=== PATIENT | male | born 1940 | race Caucasian/White ===

== ENCOUNTER 2018-05-29 13:55 | Emergency (ER) | payer BC, SELFPAY ==
[2018-05-29] MEDS ORDERED: Adacel (T-DAP) 0.5 ML VIAL ONE (15:22)
== END 2018-05-29 14:30 | disposition left against medical advice (07) ==
LOC: SCSER 13:55
DX: Z53.21 Procedure and treatment not carried out due to patient leaving prior to being seen by health care provider (principal)
CPT/HCPCS: 90715

== ENCOUNTER 2018-05-29 19:07 | Inpatient (IN) | payer MEDICARE ==
[2018-05-29] MEDS ORDERED: Diltiazem HCl 125 MG, Admixture Fee 1 EACH in Sodium Chloride 0.9% 100 ML IVPB SCH (19:30)
[2018-05-29] MEDS ORDERED: Enoxaparin Sodium 80 MG/0.8 ML SYRINGE ONE (19:49)
[2018-05-29 20:23] LABS: Prothrombin Time 13.3 SEC (12.0-14.7)
[2018-05-29 20:24] LABS: PTT 22.5 SEC (22.9-36.1)
[2018-05-29] MEDS ORDERED: Ondansetron HCl/PF 4 MG/2 ML Vial IVP PRN (22:11)
[2018-05-29] MEDS ORDERED: Ondansetron ODT 4 MG TAB SL PRN (22:11)
[2018-05-29] MEDS ORDERED: Acetaminophen 325 MG TAB PO PRN (22:11)
[2018-05-29 22:39] VITALS: BMI 25.4
[2018-05-30] MEDS ORDERED: Diltiazem 125 MG in Sodium Chloride 0.9% 100 ML IVPB SCH (01:30)
[2018-05-30 05:56] LABS: Anion Gap 11 mmol/L (10-20); BUN (Urea Nitrogen) 16 mg/dL (8.4-25.7); Calc. Creatinine Clearance 91 mL/min (70-130); Calcium 8.5 mg/dL (7.8-10.44); Carbon Dioxide 23 mmol/L (23-31); Chloride 107 mmol/L (98-107); Estimated GFR-MDRD Greater than 90; Glucose 92 mg/dL (83-110); Potassium 3.4 mmol/L (3.5-5.1); Sodium 138 mmol/L (136-145)
--- NOTE | 2018-05-30 06:01 | HP ---
PRIMARY CARE DOCTOR FOR THIS PATIENT: No PCP. CODE STATUS: FULL CODE. TIME OF EVALUATION: 11:50 p.m. CHIEF COMPLAINT FOR THIS PATIENT: Palpitation. HISTORY OF PRESENT ILLNESS: This is a 77-year-old male patient with past medical history of health, does not follow with any primary care doctor. The patient was working outside and he had some trauma with the wires and went to the ER. He had a checkup and after he got his wound stitches, he was fou nd to have heart rate in the 160s when he was checked. He has atrial fibrillation with rapid ventric ular response which is new for the patient. The patient's symptoms were mild. No clear triggers, no alleviating factors. The patient was placed on a Cardizem drip for heart rate control, was given Lo venox and he has been placed on . No significant associated factors. REVIEW OF SYSTEMS: Constitutional: No fever or chills or generalized weakness. Respiratory: No co ugh, sputum production. No shortness of breath. Cardiovascular: The patient has palpitations. No chest pain. Gastrointestinal: No nausea, vomiting, diarrhea or abdominal pain. 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 Genitourinary: No burning with urination. Extremities: No leg s welling. All other systems were reviewed and negative except for the findings mentioned above. PAST MEDICAL HISTORY: History of GERD, hyperlipidemia. PAST SURGICAL HISTORY: Anterior right ankle fracture. SOCIAL HISTORY: The patient drinks every day. No drugs. He smokes cigarettes. KNOWN ALLERGIES: No known drug allergies. REPORTED MEDICATIONS: Gabapentin, omeprazole, gemfibrozil, nortriptyline, Flomax, Naprosyn. VITAL SIGNS: On presentation, heart rate 157, respiratory rate was 18, temperature 97.9, pain was 0/ 10, oxygen saturation 93 on room air. EKG: The patient has atrial fibrillation with rapid ventricular response at the rate of 109. Good P VCs Chest x-ray was done and was negative. PHYSICAL EXAMINATION: GENERAL APPEARANCE: The patient is alert, oriented, no acute distress. HEENT: Eyes, normal conjunctivae. Moist oral mucosa. Anicteric. NECK: No JVD. RESPIRATORY: Bilateral air entry. No rales, no wheezes. Symmetric expansion. CARDIOVASCULAR: The patient is tachycardic. Irregular rhythm. No murmurs. No gallop. No edema. ABDOMEN: Soft. The patient is obese. Normal bowel sounds. MUSCULOSKELETAL: Baseline range of motion and strength. No tenderness. SKIN: Warm and intact. No pallor, no rash, no redness. Peripheral pulses are present. Capillary r efill seems to be intact. NEUROLOGIC: No evidence of any new focal weakness. Baseline speech. Cranial nerves seem to be inta ct. PSYCHIATRIC: The patient is in good mood. No anxiety, oriented, optimal judgment. LABORATORY DATA: INR 1.0. PT 13.3, PTT 22.5. Hematology: White count was 20, hemoglobin was 13.7, MCV was 112, platelet count 164. Chemistry: Sodium 141, potassium 4.0, chloride 108, carbon dioxid e 22, anion gap 15, BUN 15, creatinine 1.0, GFR 71, glucose 137, calcium 9.5, total bilirubin 0.5, T 16, ALT 10, alk phos 63. CK 136, troponin 0.017. Beta natriuretic peptide 277. Serum total prote in was 6.9 with albumin 4.0, globulin 2.9, albumin globulin ratio is 1.4. ASSESSMENT AND PLAN: The patient will be placed in the hospital with the following medical problems. 1. Atrial fibrillation with rapid ventricular response. The patient is still tachyarrhythmic, on Ca rdizem drip. We will adjust the dose. I will call Cardiology. The patient under anticoagulation. We will follow recommendations for further management from Cardiology. 2. Leukocytosis of 20, unclear etiology. We will monitor. No evidence of any acute infection at th is time. 3. Hyperglycemia with a glucose of 127. There is minimal related to acute physical distress o r poor oral tolerance to glucose. We will monitor. No need for acute intervention at this point. W e will adjust medicines as needed. 4. Mildly elevated beta natriuretic peptide. The patient has no history of any cardiac disease. We will monitor ago and will treat accordingly. The patient has a known history of congestive heart fa ilure. We will do echocardiogram in the morning,also, presence of congestive heart failure. Atrial fibrillation, the patient could have some kind of congestive heart failure secondary to the atrial fi brillation. 5. Deep venous thrombosis prophylaxis. The patient is on full dose anticoagulation.
[2018-05-30 06:33] LABS: Band 1 % (5-11); Lymphocytes 93 % (21-51); MDiff Complete? YES; Macrocytosis SLIGHT = 6-15 cells (100X) (0-5/hpf); Mean Corpuscular HGB CONC 33.3 g/dL (32.0-36.0); Mean Corpuscular Hemoglobin 37.6 pg (27.0-31.0); Monocytes 2 % (0-10); Neutrophil 4 % (42-75); Platelet Count 160 thou/uL (130-400); RBC Distribution Width 13.7 % (11.5-14.5); Red Blood Cell (RBC) Count 3.19 mill/uL (4.70-6.10); White Blood Cell (WBC) Count 21.9 thou/uL (4.8-10.8)
[2018-05-30] MEDS: Enoxaparin Sodium 80 MG/0.8 ML SYRINGE SC SCH ×2 (08:50→21:12)
[2018-05-30] MEDS ORDERED: Acetaminophen 325 MG TAB PO PRN (13:52)
--- NOTE | 2018-05-30 16:37 | CON ---
DATE OF SERVICE: 05/30/2018. REASON FOR CONSULTATION: Atrial fibrillation, new onset. HISTORY OF PRESENT ILLNESS: Mr. Reeves is a very pleasant 77-year-old gentleman with no previous pas t medical history, who recently was working on a fence. He states he had trauma from the wire. He p resented to the emergency room for stitches. He was found to be in atrial fibrillation with RVR. Th is is a new finding. He was asymptomatic. No chest pain, pressure, or other associated symptoms. H e was subsequently admitted. PAST MEDICAL HISTORY: Acid reflux, hyperlipidemia. SOCIAL HISTORY: Positive alcohol, positive tobacco use. ALLERGIES: None. HOME MEDICATIONS: Include omeprazole, gabapentin, gemfibrozil, nortriptyline, Flomax, and Naprosyn. REVIEW OF SYSTEMS: A 10-point review of systems was reviewed as above, otherwise negative. PHYSICAL EXAMINATION: VITAL SIGNS: Blood pressure 130/89, pulse 96, temperature 97.2. GENERAL: Patient is a pleasant male who is in no acute distress. The patient appears his stated age. NEUROLOGIC: The patient is alert and oriented times 3 with no focal neurologic deficits. HEENT: Sclerae without icterus. Mouth has moist mucous membranes with normal pallor. NECK: No JVD. Carotid upstroke brisk. No bruits bilaterally. LUNGS: Clear to auscultation with unlabored respirations. BACK: No scoliosis or kyphosis. CARDIAC: Irregularly irregular rate and rhythm with normal S1 and S2. No S3 or S4 noted. No significant rubs, murmurs, thrills, or gallops noted throughout the precordium. PMI is not displa jaylene. There is no parasternal heave. ABDOMEN: Soft, nontender, nondistended. No peritoneal signs present. No hepatosplenomegaly. No abnormal striae. EXTREMITIES: 2+ femoral and 2+ dorsalis pedis pulses. No cyanosis, clubbing, or edema. SKIN: No gross abnormalities. PERTINENT LABS: White blood cell count 21,000, hemoglobin 12, platelet count 160. Sodium 138, potas sium 3.4, creatinine 0.77. IMPRESSION: Atrial fibrillation with rapid ventricular response. RECOMMENDATIONS: Mr. Reeves's findings are felt to be new. He has no previous history of atrial fib rillation. At this point, I recommend rate control. His LVEF is mildly diminished estimated at 45 t o 50% and likely due to underlying atrial fibrillation. Continue IV Cardizem and supplement with p.o . Cardizem. Once his rate is controlled and off IV Cardizem, would be okay from my standpoint to dis charge home with close outpatient followup. We would also recommend checking a TSH.
--- NOTE | 2018-05-30 17:38 | PDOC.PN ---
- Subjective Encounter Start Date: 05/30/18 Encounter Start Time: 08:20 Pt seen for followup re: afib with RVR. Denies chest pain, shortness of breath , fevers or chills. - Objective Resuscitation Status: Resuscitation Status FULL:Full Resuscitation MAR Reviewed: Yes Vital Signs & Weight: Vital Signs (12 hours) Temp Pulse Resp BP Pulse Ox 05/30/18 15:56 98.2 F 96 16 133/89 96 05/30/18 12:00 98.0 F 58 L 17 118/73 95 05/30/18 07:57 95 05/30/18 07:32 97.8 F 86 17 105/75 95 Weight Weight 172 lb I&O: 05/29/18 05/30/18 05/31/18 06:59 06:59 06:59 Intake Total 300 Output Total 250 Balance 50 Result Diagrams: 05/30/18 05:02 05/30/18 05:02 EKG Reviewed by me: Yes (Tele: a. don) Phys Exam - Physical Examination Constitutional: NAD HEENT: moist MMs, sclera anicteric, oral pharynx no lesions, 2+ tonsils Neck: no nodes, no JVD, supple, full ROM Respiratory: no wheezing, no rales, no rhonchi, clear to auscultation bilateral Cardiovascular: RRR, no rub S1, S2 Gastrointestinal: soft, non-tender, no distention, positive bowel sounds Neurological: moves all 4 limbs Psychiatric: normal affect, A&O x 3 Dx/Plan (1) Atrial fibrillation with RVR Code(s): I48.91 - UNSPECIFIED ATRIAL FIBRILLATION Status: Acute Comment: on cardizem drip and Lovenox (2) Hypokalemia Code(s): E87.6 - HYPOKALEMIA Status: Acute Comment: replace potassium (3) Leucocytosis Code(s): D72.829 - ELEVATED WHITE BLOOD CELL COUNT, UNSPECIFIED Status: Acute Comment: no evidence of infection on CXR, check urinalysis, recheck CBC (4) GERD (gastroesophageal reflux disease) Code(s): K21.9 - GASTRO-ESOPHAGEAL REFLUX DISEASE WITHOUT ESOPHAGITIS Status: Chronic Comment: continue PPI (5) Dyslipidemia Code(s): E78.5 - HYPERLIPIDEMIA, UNSPECIFIED Status: Chronic Comment: continue gemfibrozil (6) BPH (benign prostatic hyperplasia) Code(s): N40.0 - BENIGN PROSTATIC HYPERPLASIA WITHOUT LOWER URINRY TRACT SYMP Status: Chronic Comment: stable, continue Flomax - Plan * . Review of Systems - Review of Systems Constitutional: negative: fever, chills, sweats, weakness, malaise Respiratory: negative: Cough, Shortness of Breath, SOB with Excertion, Pleuritic Pain, Wheezing Cardiovascular: negative: chest pain, palpitations, orthopnea, paroxysmal nocturnal dyspnea, edema, light headedness Gastrointestinal: negative: Nausea, Vomiting, Abdominal Pain, Diarrhea, Constipation, Melena, Hematochezia Genitourinary: negative: Dysuria, Frequency, Incontinence, Hematuria, Retention Skin: negative: Rash, Lesions, Yury, Bruising - Medications/Allergies Allergies/Adverse Reactions: Allergies Allergy/AdvReac Type Severity Reaction Status Date / Time No Known Drug Allergies Allergy Unverified 05/29/18 22:14 Medications: Current Medications Acetaminophen (Tylenol) 650 mg PO Q6H PRN PRN Reason: Headache/Fever or Pain Last Admin: 05/30/18 14:24 Dose: 650 mg Diltiazem HCl (Cardizem Sr) 60 mg PO Q6HR JESSICA Enoxaparin Sodium (Lovenox) 80 mg SC 0900,2100 JESSICA Last Admin: 05/30/18 08:50 Dose: 80 mg Diltiazem HCl 125 mg/ Sodium (Chloride) 125 mls @ 5 mls/hr IVPB INF JESSICA; Protocol Last Admin: 05/30/18 13:19 Dose: 125 mls Potassium Chloride (K-Dur) 40 meq PO ONE [facility]
[2018-05-30] MEDS ORDERED: Potassium Chloride 20 MEQ TAB PO SCH (17:45)
[2018-05-30] MEDS: Diltiazem HCl SR 60 mg Capsule PO SCH ×2 (18:18→23:21)
[2018-05-30] MEDS: Gabapentin 100 MG CAP PO SCH (21:12)
[2018-05-30] MEDS: Gemfibrozil 600 MG TAB PO SCH (21:12)
[2018-05-30] MEDS: Nortriptyline 10 MG CAP PO SCH (21:17)
[2018-05-31 05:42] LABS: Anion Gap 11 mmol/L (10-20); BUN (Urea Nitrogen) 11 mg/dL (8.4-25.7); Calc. Creatinine Clearance 93 mL/min (70-130); Calcium 8.6 mg/dL (7.8-10.44); Carbon Dioxide 24 mmol/L (23-31); Chloride 106 mmol/L (98-107); Estimated GFR-MDRD Greater than 90; Glucose 90 mg/dL (83-110); Potassium 3.9 mmol/L (3.5-5.1); Sodium 137 mmol/L (136-145)
[2018-05-31 05:56] LABS: Hemoglobin 12.5 g/dL (14.0-18.0); Lymphocytes 81 % (21-51); MDiff Complete? YES; Macrocytosis SLIGHT = 6-15 cells (100X) (0-5/hpf); Mean Corpuscular HGB CONC 33.3 g/dL (32.0-36.0); Mean Corpuscular Hemoglobin 37.6 pg (27.0-31.0); Mean Platelet Volume 7.4 fL (7.4-10.4); Neutrophil 10 % (42-75); Platelet Count 156 thou/uL (130-400); RBC Distribution Width 13.5 % (11.5-14.5); Reactive Lymphocytes 9 % (0-10); Red Blood Cell (RBC) Count 3.32 mill/uL (4.70-6.10); White Blood Cell (WBC) Count 21.1 thou/uL (4.8-10.8)
[2018-05-31] MEDS: Diltiazem HCl SR 60 mg Capsule PO SCH (06:06)
[2018-05-31 06:19] LABS: Bilirubin Negative (Negative); Blood, Urine Negative (Negative); Clarity CLEAR (Clear); Glucose, Urine (Dipstick) Negative (Negative); Leukocyte Negative (Negative); Nitrite Negative (Negative); Protein, Urine (Dipstick) Negative (Neg-Trace); Specific Gravity, Urine 1.019 (1.002-1.036); Urobilinogen 0.2 mg/dL (0.2-1.0)
[2018-05-31] MEDS: Enoxaparin Sodium 80 MG/0.8 ML SYRINGE SC SCH (08:48)
[2018-05-31] MEDS: Gabapentin 100 MG CAP PO SCH ×3 (08:48→21:52)
[2018-05-31] MEDS: Tamsulosin HCl 0.4 MG CAP PO SCH (08:48)
[2018-05-31] MEDS ORDERED: Diltiazem 125 MG in Sodium Chloride 0.9% 100 ML IVPB SCH (10:20)
[2018-05-31] MEDS ORDERED: Diltiazem HCl SR 60 mg Capsule PO SCH (10:22)
--- NOTE | 2018-05-31 10:22 | PDOC.CTH ---
Cardiology Progress Note - Subjective Doing well. nO complaints. - Objective Vital Signs Temp Pulse Resp BP Pulse Ox 05/31/18 07:53 97.1 F L 77 17 113/69 94 L 05/31/18 04:00 97.9 F 85 16 126/81 92 L Weight 174 lb 9.6 oz 05/30/18 05/31/18 06/01/18 06:59 06:59 06:59 Intake Total 300 900 Output Total 250 980 Balance 50 -80 - Physical Examination General/Neuro: alert & oriented x3, NAD Neck: carotid US brisk, no JVD present Lungs: unlabored respirations Heart: other: (irr) - Labs Result Diagrams: 05/31/18 04:31 05/31/18 04:31 - Assessment/Plan afib New onset. Recommend rate ocntrol Decrease cardizem IV. Increase PO to 90mg q6 hours. If stable, anticipate dc in am
[2018-05-31] MEDS: Diltiazem HCl SR 90 mg Capsule PO SCH ×2 (12:16→17:49)
--- NOTE | 2018-05-31 16:22 | PDOC.PN ---
- Subjective Encounter Start Date: 05/31/18 Encounter Start Time: 14:30 -: old records requested/rev Pt seen and examined, chart reviewed in its entirety, this is my first visit with this patient No F/C,no N/V/D/C, no CP or SOB, no cough. No acute events overnight, no new complaints dressing removed from left hand, suture site C/D/I Pt drinks a gallon of whiskey every 3 days All systems reviewed and neg except as above - Objective Resuscitation Status: Resuscitation Status FULL:Full Resuscitation MAR Reviewed: Yes Vital Signs & Weight: Vital Signs (12 hours) Temp Pulse Resp BP Pulse Ox 05/31/18 12:00 97.8 F 62 17 116/66 93 L 05/31/18 07:53 97.1 F L 77 17 113/69 94 L Weight Weight 174 lb 9.6 oz I&O: 05/30/18 05/31/18 06/01/18 06:59 06:59 06:59 Intake Total 300 900 Output Total 250 980 Balance 50 -80 Result Diagrams: 05/31/18 04:31 05/31/18 04:31 Radiology Reviewed by me: Yes EKG Reviewed by me: Yes Phys Exam - Physical Examination Constitutional: NAD HEENT: PERRLA, moist MMs, sclera anicteric, oral pharynx no lesions Neck: no nodes, no JVD, supple, full ROM Respiratory: no wheezing, no rales, no rhonchi, clear to auscultation bilateral Cardiovascular: no significant murmur, no rub, irregular Gastrointestinal: soft, non-tender, no distention, positive bowel sounds Musculoskeletal: no edema, pulses present Neurological: non-focal, normal sensation, moves all 4 limbs Lymphatic: no nodes Psychiatric: normal affect, A&O x 3 Skin: no rash, normal turgor, cap refill <2 seconds Dx/Plan (1) Atrial fibrillation with RVR Code(s): I48.91 - UNSPECIFIED ATRIAL FIBRILLATION Status: Acute Comment: on cardizem drip and Lovenox, increase po per cardiology, stopp gtt? (2) Hypokalemia Code(s): E87.6 - HYPOKALEMIA Status: Resolved Comment: replaced potassium (3) Leucocytosis Code(s): D72.829 - ELEVATED WHITE BLOOD CELL COUNT, UNSPECIFIED Status: Acute Qualifiers: Leukocytosis type: unspecified Qualified Code(s): D72.829 - Elevated white blood cell count, unspecified Comment: no evidence of infection on CXR, check urinalysis, recheck CBC (4) BPH (benign prostatic hyperplasia) Code(s): N40.0 - BENIGN PROSTATIC HYPERPLASIA WITHOUT LOWER URINRY TRACT SYMP Status: Chronic Qualifiers: Lower urinary tract symptom presence: symptoms absent Qualified Code(s): N40.0 - Benign prostatic hyperplasia without lower urinary tract symptoms Comment: stable, continue Flomax (5) Dyslipidemia Code(s): E78.5 - HYPERLIPIDEMIA, UNSPECIFIED Status: Chronic Comment: continue gemfibrozil (6) GERD (gastroesophageal reflux disease) Code(s): K21.9 - GASTRO-ESOPHAGEAL REFLUX DISEASE WITHOUT ESOPHAGITIS Status: Chronic Qualifiers: Esophagitis presence: without esophagitis Qualified Code(s): K21.9 - Gastro -esophageal reflux disease without esophagitis Comment: continue PPI - Plan cont current plan of care, PT/OT, out of bed/ambulate * .
[2018-05-31] MEDS: Apixaban 5 MG TAB PO SCH (21:51)
[2018-05-31] MEDS: Nortriptyline 10 MG CAP PO SCH (21:51)
[2018-05-31] MEDS: Gemfibrozil 600 MG TAB PO SCH (21:52)
[2018-06-01] MEDS: Diltiazem HCl SR 90 mg Capsule PO SCH ×3 (00:13→13:07)
[2018-06-01] MEDS: Gabapentin 100 MG CAP PO SCH (08:56)
[2018-06-01] MEDS: Apixaban 5 MG TAB PO SCH (08:56)
[2018-06-01] MEDS: Tamsulosin HCl 0.4 MG CAP PO SCH (08:57)
[2018-06-01 12:55] VITALS: BP 128/62; TEMP 97.3
--- NOTE | 2018-06-01 13:15 | PDOC.CTH ---
Cardiology Progress Note - Subjective Pt doing well. Of IV CCB. - Objective Vital Signs Temp Pulse Resp BP Pulse Ox 06/01/18 12:00 97.3 F L 84 18 128/62 93 L 06/01/18 08:00 97.7 F 73 18 140/68 92 L 06/01/18 04:00 97.5 F L 78 20 89/55 L 95 Weight 173 lb 14.4 oz 05/31/18 06/01/18 06/02/18 06:59 06:59 06:59 Intake Total 900 1204 Output Total 980 825 Balance -80 379 - Physical Examination General/Neuro: alert & oriented x3, NAD Neck: carotid US brisk, no JVD present Lungs: CTA, unlabored respirations Heart: other: (irr) Abdomen: no HSM, NT/ND, soft Extremities: + femoral B - Labs Result Diagrams: 05/31/18 04:31 05/31/18 04:31 - Assessment/Plan afib Pt stable off IV CCB Change to cardizem 360mg QAM On NOAC Ok for d/c. Fu in 1 week in office.
--- NOTE | 2018-06-01 23:57 | DIS ---
DATE OF ADMISSION: 05/30/2018 DATE OF DISCHARGE: 06/01/2018 DISCHARGE DIAGNOSES: 1. Newly diagnosed atrial fibrillation with rapid ventricular rate. 2. Hypokalemia. 3. Leukocytosis. 4. Alcohol abuse. HOSPITAL COURSE: The patient is a very pleasant 77-year-old male who initially presented to the hosp ital with complaints of palpitations. He was found to be in atrial fibrillation with RVR with heart rates of 160s. He was initially started on Cardizem drip. Based on his CHADS score, he was started also on Eliquis. He was seen by Cardiology who ordered an echocardiogram, which indicated an EF of 4 5%-50% and mild tricuspid regurgitation. The patient's heart rate was stable on discharge. Cardiokunal reyez said okay to discharge the patient to follow up with outpatient echo since his low EF is most like ly secondary to the patient being in atrial fibrillation. The patient also had leukocytosis. I did speak with the patient about that. The patient states that he has a history of elevated white count, and he is not sure if he is diagnosed with CLL or CML, but most likely it could possibly a CLL. The patient was asked to follow up with his primary and also keep an eye on his elevated white count. T here is no underlying infection noted. PHYSICAL EXAMINATION: VITAL SIGNS: Temperature of 97.7, pulse 73, respirations 18, saturation 92% on room air, blood press ure 140/68. GENERAL: He is awake, alert, oriented x3, does not appear in distress. CARDIOVASCULAR: S1, S2 present. No murmurs, rubs, or gallops. ABDOMEN: Soft, nontender. Bowel sounds are present x2. EXTREMITIES: No edema. I did speak with the patient and the patient's extensively about the side effects of Eliquis and that he needs to be very careful in terms of bleeding risks and he needs to get attention immediatel y if he starts bleeding or has a fall and injured his head or has dark stools or bright blood per rec ana. His home medications are as of the following: He will go home with apixaban 5 mg b.i.d., diltiazem 3 60 mg daily, gabapentin 200 mg t.i.d., gemfibrozil mg at bedtime, nortriptyline 10 mg at bedtim e, omeprazole 20 mg b.i.d., and tamsulosin 0.4 daily.
== END 2018-06-01 14:14 | disposition home or self-care (01) | DRG 310 ==
LOC: ERS 19:07 → 2NO 20:05
PROVIDERS: ADMIT Hospitalist; ATTEND Hospitalist
DX: I48.91 Unspecified atrial fibrillation (principal); K21.9 Gastro-esophageal reflux disease without esophagitis; E78.5 Hyperlipidemia, unspecified; R73.9 Hyperglycemia, unspecified; F10.10 Alcohol abuse, uncomplicated; D72.829 Elevated white blood cell count, unspecified; E87.6 Hypokalemia; N40.0 Benign prostatic hyperplasia without lower urinary tract symptoms; F17.210 Nicotine dependence, cigarettes, uncomplicated
CPT/HCPCS: 36415; 80048; 81003; 84443; 85025; 85610; 85730; 90715; 93005; 93306; 96365; 96366; 96372; J1650; J7050

== ENCOUNTER 2018-12-05 09:01 | Inpatient (IN) | payer MEDICARE ==
[2018-12-05] MEDS ORDERED: Cefepime 2 GM VIAL ONE (09:27)
[2018-12-05] MEDS ORDERED: Vancomycin HCl 1.5 GM in Sodium Chloride 0.9% 250 ML 300 ML IVPB SCH (09:30)
[2018-12-05 09:37] LABS: Hemoglobin 11.8 g/dL (14.0-18.0); Mean Corpuscular HGB CONC 33.6 g/dL (32.0-36.0); Mean Corpuscular Hemoglobin 36.8 pg (27.0-31.0); RBC Distribution Width 12.8 % (11.5-14.5)
--- NOTE | 2018-12-05 09:37 | RAD ---
Exam: Chest one view HISTORY:Dyspnea Comparison: 05/29/2018 FINDINGS: Lungs: Prominent opacification of the mid inferior right lung. There is patchy left parenchymal opaci ty of the perihilar region Cardiac silhouette:Enlarged Pulmonary vessels: Engorged Pleural Spaces: Small volume pleural fluid not excluded Pneumothorax: None Osseous abnormalities: None of acuity. IMPRESSION: Findings most consistent with multifocal bilateral pneumonia. Recommend follow-up upon completion of treatment regimen to confirm resolution of findings
[2018-12-05 09:42] LABS: Actual Bicarbonate (HCO3a) 20.8 mEq/L (22-28); Analyzer IN Cardio ER; Base Excess (BEa) -2.3 mEq/L (-2.0 to +3.0); CO2 Tension 31.4 mmHg (35.0-45.0); Calcium, Ionized 1.16 mmol/L (1.12-1.30); Carboxyhemoglobin (COHb) 0.3 gm% (0.0-3.0); Hemoglobin (Hb) 14.1 g/dL (14.0-18.0); O2 Tension (PaO2) 67.1 mmHg (> 70.0); pH, Arterial 7.44 (7.35-7.45)
[2018-12-05 09:44] LABS: Puncture Site RR
[2018-12-05 09:47] LABS: ALT (SGPT) Less than 7 U/L (8-55); AST (SGOT) 12 U/L (5-34); Albumin 3.4 g/dL (3.4-4.8); Alkaline Phosphatase 87 U/L (40-150); Anion Gap 16 mmol/L (10-20); BUN (Urea Nitrogen) 24 mg/dL (8.4-25.7); Bilirubin, Total 0.4 mg/dL (0.2-1.2); Calc. Creatinine Clearance 0 mL/min (70-130); Calcium 9.9 mg/dL (7.8-10.44); Carbon Dioxide 22 mmol/L (23-31); Chloride 96 mmol/L (98-107); Estimated GFR-MDRD 71; Glucose 130 mg/dL (83-110); Potassium 3.9 mmol/L (3.5-5.1); Protein, Total 7.4 g/dL (5.8-8.1); Sodium 130 mmol/L (136-145)
[2018-12-05 10:14] LABS: Platelet Count 176 thou/uL (130-400); White Blood Cell (WBC) Count 27.8 thou/uL (4.8-10.8)
[2018-12-05 10:35] LABS: Band 1 % (5-11); Lymphocytes 92 % (21-51); Neutrophil 3 % (42-75); Reactive Lymphocytes 3 % (0-10)
[2018-12-05 10:36] LABS: Microcytosis SLIGHT = 6-15 cells (100X) (0-5/hpf); Ovalocytes SLIGHT = 2-5 cells (100X) (0-1/hpf); Polychromasia SLIGHT = 2-3 cells (100X) (0-2/hpf)
[2018-12-05 10:37] LABS: MDiff Complete? YES
[2018-12-05 11:07] LABS: Bacteria/HPF None Seen HPF (None Seen); Bilirubin Negative (Negative); Blood, Urine Negative (Negative); Clarity CLOUDY (Clear); Glucose, Urine (Dipstick) Negative (Negative); Leukocyte Negative (Negative); Nitrite Negative (Negative); Protein, Urine (Dipstick) 30 mg/dL (Neg-Trace); Specific Gravity, Urine 1.026 (1.002-1.036); Squamous Epithelial 0-3 HPF (0-3); Urobilinogen 0.2 mg/dL (0.2-1.0); pH, Urine 5.5 (5.0-9.0)
[2018-12-05 11:08] LABS: Pathc Cast-AUWi Flag 6.52 (0-2.49)
[2018-12-05 11:19] LABS: Crystals/HPF 1+ AMORPH URATES HPF (Negative); Renal Epithelial 0-3 HPF (0-3); Transitional Epithelial 0-3 HPF (0-3)
[2018-12-05] MEDS ORDERED: CCU Electrolyte Replacement 1 EACH FS ONE (11:33)
[2018-12-05] MEDS ORDERED: guaiFENesin/Dextromethorphan 10 ML UDCUP PO PRN (11:35)
[2018-12-05] MEDS ORDERED: Potassium Chloride 40 MEQ in Sodium Chloride 0.9% 250 ML 250 ML IVPB PRN (11:45)
[2018-12-05] MEDS ORDERED: Potassium Phosphate 12 MMOL in Sodium Chloride 0.9% 250 ML 250 ML IV PRN (11:45)
[2018-12-05] MEDS ORDERED: Potassium Phosphate 15 MMOL in Sodium Chloride 0.9% 250 ML 250 ML IV PRN (11:45)
[2018-12-05] MEDS ORDERED: PHOS-NAK 1 PKT PACK PO PRN ×2 (11:45)
[2018-12-05] MEDS ORDERED: Magnesium 2 GM/50 ML 2 GM in Premix Bag 1 BAG IVPB PRN (11:45)
[2018-12-05] MEDS ORDERED: Potassium Phosphate 9 MMOL in Sodium Chloride 0.9% 100 ML IVPB PRN (11:45)
[2018-12-05] MEDS ORDERED: Potassium Chloride 40 MEQ in Premix Bag 1 BAG IVPB PRN (11:45)
[2018-12-05] MEDS ORDERED: Magnesium Oxide 400 MG TAB PO PRN ×2 (11:45)
[2018-12-05] MEDS ORDERED: CCU ELECTROLYTE REPLACEMENT PROTOCOL FS PRN (11:45)
[2018-12-05] MEDS ORDERED: methylPREDNISolone Sod Succ 40 MG VIAL IVP SCH (12:00)
[2018-12-05 12:29] LABS: Manual Diff?? YES
[2018-12-05] MEDS: Sodium Chloride 0.9% 1,000 ML IV SCH (12:31)
[2018-12-05] MEDS: methylPREDNISolone Sod Succ 40 MG VIAL IVP SCH ×3 (12:38→23:21)
[2018-12-05] MEDS ORDERED: Guaifenesin DM 100-10/5 ML UDCUP PO PRN (13:39)
[2018-12-05] MEDS ORDERED: Acetaminophen 325 MG TAB PO PRN (13:39)
[2018-12-05] MEDS ORDERED: Bisacodyl 5 MG TAB PO PRN (13:39)
[2018-12-05] MEDS ORDERED: Ondansetron PF 4 MG/2 ML Vial IVP PRN (13:39)
--- NOTE | 2018-12-05 14:07 | CON ---
DATE OF CONSULTATION: This encompassed 70 minutes time, of that time, greater than 50% was spent with the patient and/or at the patient's unit in the hospital. REASON FOR CONSULTATION: Pneumonia and hypoxic respiratory failure. HISTORY OF PRESENT ILLNESS: Mr. Reeves is a 78-year-old male, who developed shortness of breath and chest congestion 4 or 5 days ago. He was seen in urgent care and prescribed Omnicef and Zithromax, for which he has been taking about 2 days of treatment. Despite that, his shortness of breath has gotten worse. He has trouble breathing both in the sitting and lying position. He has a cough and congestion. He had a fever yesterday of 102. PAST MEDICAL HISTORY: 1. Chronic lymphocytic leukemia diagnosed over 10 years ago, but not treated. 2. Hyperlipidemia. 3. Gastroesophageal reflux. 4. Atrial fibrillation. PAST SURGICAL HISTORY: Right ankle fracture surgery by Dr. Shelton. SOCIAL HISTORY: He drinks 3 drinks of whiskey a day. He smokes one and half pack cigarettes per day in terms of since age 16 aside for 1 year when he quit. He is retired from [employer] the [employer]. He most recently moved back to this area from [place]. ALLERGIES: NONE. MEDICATIONS: Prior to admission; 1. Eliquis. 2. Some type of cholesterol medication. 3. Some type of antihypertensive. 4. He is also taking Zithromax and Omnicef. FAMILY MEDICAL HISTORY: He denies any family history of lung problems. REVIEW OF SYSTEMS: He has had fever and chills. No nausea. No vomiting. No hematemesis, melena, or hematochezia. No hematuria or dysuria. Remainder of 12-point review of systems is negative. PHYSICAL EXAMINATION: VITAL SIGNS: O2 saturation is running in the low 90s on 2 L, pulse in the 120s with atrial fibrillation rapid ventricular response, and blood pressure 110/70. He is awake and in no distress. HEENT: Pupils reactive. Sclerae anicteric. Oropharynx, class 2 Mallampati airway. NECK: No adenopathy, JVD, or bruits. LUNGS: Coarse breath sounds bilaterally. CARDIAC: S1 and S2. Irregularly irregular. ABDOMEN: Soft, obese, nontender, and nondistended. EXTREMITIES: No clubbing, cyanosis, or edema. IMAGING DATA: His chest x-ray shows bilateral infiltrates right greater than left. LABORATORY DATA: White count 27.8, hematocrit 35, and platelet count 176 with 92% lymphocytes and 3% neutrophils. Blood gas; pH of 7.44, pCO2 of 31, and pO2 of 67, that was on 2 L. Sodium 130, potassium 3.9, chloride 96, CO2 of 22, BUN 24, creatinine 1.0, glucose 130, lactate 2.1, AST 12, and ALT less than 7. Troponin 0.01 and BNP 1000. Albumin 3.4. ASSESSMENT: 1. The patient presenting with hypoxic respiratory failure and bilateral pulmonary infiltrates. Differential diagnosis pneumonia and/or congestive heart failure. I believe in this case, I am leaning more toward pneumonia based on the clinical presentation. 2. Chronic lymphocytic leukemia. 3. Atrial fibrillation with rapid ventricular response. PLAN: 1. Admit to CCU because of high risk for decompensation in the next 24 hours. 2. Start Levaquin and vancomycin. He has been on a penicillin type cephalosporin as an outpatient and apparently is failing that treatment. 3. Cardizem drip. 4. Very judicious use of IV fluids. 5. IV steroids and nebulization treatment. 6. Continue Eliquis. 7. Cardizem for rate control of atrial fibrillation. Job ID: [id number]
--- NOTE | 2018-12-05 14:31 | HP ---
PRIMARY CARE PROVIDER: Dr. Brian Holman in [facility] in [place], his phone #[phone]. PRINCIPAL AUTOMATION ENGINEER: Augie Price MD HISTORY OF PRESENT ILLNESS: Mr. Reeves is a pleasant 78-year-old gentleman, who was seen at [facility] on December 05, 2018. He moved to this area from [place] last year. Last May, he was seen in the emergency room here for atrial fibrillation, new onset, with rapid ventricular response. He subsequently followed up with Dr. Price in office. He reports that he was doing well until 2 days ago. At that time, he developed cough, which is dry. He also reports chronic pain across his lower back that has not changed recently. He denies any fevers. He reports shortness of breath with the cough. He denies any nausea or vomiting. He denies any abdominal pain. He went to an urgent care clinic and was started on cefdinir and azithromycin. He continued to have cough and shortness of breath and therefore, presented to the emergency room. He denies any chest pain or palpitations. REVIEW OF SYSTEMS: All other systems reviewed and found to be negative. PAST MEDICAL HISTORY: CLL diagnosed 20 years ago, the patient reports that he has been advised not to undergo any treatments unless the white count exceeds 50,000. Atrial fibrillation, COPD, hypertension, gastroesophageal reflux disease, dyslipidemia, and arthritis. PAST SURGICAL HISTORY: Right ankle surgery. SOCIAL HISTORY: The patient drinks 3 alcoholic drinks a day. He smokes one and half packs of cigarettes a day. Denies any recreational drug use. CODE STATUS: I discussed his code status. He is full code. FAMILY HISTORY: No family history of coronary artery disease. ALLERGIES: NO KNOWN DRUG ALLERGIES. CURRENT MEDICATIONS: 1. Gabapentin 200 mg 2 times a day. 2. Omeprazole 20 mg daily. 3. Gemfibrozil 600 mg daily. 4. Nortriptyline 10 mg daily. 5. Flomax 0.4 mg daily. 6. Naprosyn 375 mg as needed. 7. Eliquis 2.5 mg 2 times a day. PHYSICAL EXAMINATION: GENERAL: On examination, Mr. Reeves is awake and alert, not in acute distress. VITAL SIGNS: Blood pressure is 126/64, pulse 114, respiratory rate 20, and oxygen saturation 94% on 1 L of oxygen. He is afebrile. EYES: No scleral icterus. No conjunctival pallor. ENT: Moist mucosal membranes. No oropharyngeal erythema or exudates. NECK: Supple and nontender. Trachea is midline. RESPIRATORY: Accessory muscles of breathing are not active. Chest wall movements are symmetric bilaterally. LUNGS: Clear to auscultation without wheeze, rhonchi, or crepitations. CARDIOVASCULAR: S1 and S2 are heard, tachycardic and irregular. Peripheral pulses palpable. No carotid bruit. No pericardial rub. ABDOMEN: Soft and nontender. Bowel sounds heard. NEUROLOGIC: Cranial nerves 2 through 12 intact. Deep tendon reflexes 2+. MUSCULOSKELETAL: Power is 5/5 in all 4 extremities. He has bilateral lower extremity edema. LYMPHATIC: No cervical lymphadenopathy. SKIN: He has a small abrasion over the left cox. PSYCHIATRIC: Normal mood, normal affect, the patient is oriented to person, place, and time. LABORATORY DATA: Mr. Reeves's labs and investigations were reviewed. I reviewed his electrocardiogram, which shows atrial fibrillation with rapid ventricular response, no ST changes to suggest an acute coronary syndrome. I also reviewed his chest x-ray, which shows multifocal bilateral pneumonia. He has leukocytosis with 27,800 white cells, of which 3% are neutrophils and 92% are lymphocytes. His last known white count was 21.1 on May 31, 2018. He has macrocytic anemia with hemoglobin 11.8, normal platelet count, decreased sodium of 130, normal potassium, normal creatinine, elevated BNP of 1000, normal troponin I, normal lactic acid, and urinalysis that is negative for nitrite and leukocyte esterase. Arterial blood gases show pH of 7.44, pCO2 of 31.4, and pO2 of 67. ASSESSMENT AND PLAN: Mr. Reeves is a pleasant 78-year-old gentleman, who was seen at [facility] on December 05, 2018. His problem list includes: 1. Bilateral pneumonia: The patient is presenting with bilateral pneumonia, failed outpatient treatment. He will be admitted to the hospital and treated with intravenous antibiotics. Pulmonary and Critical Care Medicine Service also being consulted by emergency room physician. 2. Atrial fibrillation with rapid ventricular response: The patient will be treated with Cardizem drip. 3. Hypertension: We will monitor vital signs and titrate antihypertensives as needed. 4. Gastroesophageal reflux disease: Stable. 5. Chronic lymphocytic leukemia: Stable. Many thanks for allowing me to participate in your patient's care. Please feel free to contact me with any questions or concerns. LEVEL OF RISK: High. LEVEL OF COMPLEXITY: High. Job ID: [id number]
[2018-12-05] MEDS: Nicotine 21 MG PATCH TD SCH (16:41)
[2018-12-05] MEDS: Famotidine 20 MG TAB PO SCH (20:05)
[2018-12-05] MEDS: Apixaban 5 MG TAB PO SCH (20:06)
[2018-12-05] MEDS: Vancomycin HCl 1 GM in Premix Bag 1 BAG IVPB SCH (21:39)
[2018-12-05] MEDS: Diltiazem 125 MG in Sodium Chloride 0.9% 100 ML IVPB SCH (23:28)
[2018-12-06] MEDS: Sodium Chloride 0.9% 1,000 ML IV SCH (02:25)
[2018-12-06] MEDS: methylPREDNISolone Sod Succ 40 MG VIAL IVP SCH ×4 (05:42→23:29)
[2018-12-06] MEDS: Diltiazem 125 MG in Sodium Chloride 0.9% 100 ML IVPB SCH ×3 (05:46→23:53)
[2018-12-06 05:55] LABS: Hemoglobin 10.8 g/dL (14.0-18.0); Lymphocytes 98 % (21-51); MDiff Complete? YES; Mean Corpuscular HGB CONC 34.3 g/dL (32.0-36.0); Mean Platelet Volume 7.2 fL (7.4-10.4); Monocytes 1 % (0-10); Neutrophil 1 % (42-75); Platelet Count 136 thou/uL (130-400); Platelet Morphology Comment Appears Adequate; RBC Distribution Width 12.9 % (11.5-14.5); Red Blood Cell (RBC) Count 2.83 mill/uL (4.70-6.10); White Blood Cell (WBC) Count 27.5 thou/uL (4.8-10.8)
[2018-12-06 05:56] LABS: Anion Gap 15 mmol/L (10-20); BUN (Urea Nitrogen) 20 mg/dL (8.4-25.7); Calc. Creatinine Clearance 0 mL/min (70-130); Calcium 9.1 mg/dL (7.8-10.44); Carbon Dioxide 18 mmol/L (23-31); Chloride 101 mmol/L (98-107); Estimated GFR-MDRD Greater than 90; Glucose 163 mg/dL (83-110); Potassium 3.2 mmol/L (3.5-5.1); Sodium 131 mmol/L (136-145)
[2018-12-06] MEDS: Potassium Chloride 20 MEQ TAB PO PRN (06:19)
--- NOTE | 2018-12-06 07:32 | RAD ---
CHEST 1 VIEW: INDICATION: Pneumonia. COMPARISON: Prior exam dated 12/05/2018. FINDINGS: Bilateral parenchymal opacities are stable. Heart size is unchanged. Small right pleural effusion p ersists. No pneumothorax is evident. IMPRESSION: Stable exam. POS: BH
[2018-12-06] MEDS ORDERED: Furosemide 40 MG/4 ML VIAL IVP SCH (08:00)
[2018-12-06] MEDS ORDERED: Sodium Chloride 0.65% Nasal 44 ML BOT EA NARE PRN (08:14)
[2018-12-06] MEDS ORDERED: Diabetic Tussin 200 MG/10 ML UDCUP PO PRN (08:14)
[2018-12-06] MEDS ORDERED: Loratadine 10 MG TAB PO PRN (08:14)
[2018-12-06] MEDS ORDERED: Calcium Carbonate 500 MG ChewTAB PO PRN (08:14)
[2018-12-06] MEDS ORDERED: hydrALAZINE 20 MG/ML VIAL SLOW IVP PRN (08:14)
[2018-12-06] MEDS ORDERED: Cepastat Lozenges 1 LOZ PO PRN (08:14)
[2018-12-06] MEDS ORDERED: Artificial Tears 18 DROP/0.9 ML EA EYE PRN (08:14)
[2018-12-06] MEDS ORDERED: Ondansetron ODT 4 MG TAB SL PRN (08:14)
[2018-12-06] MEDS ORDERED: Acetaminophen 500 MG TAB PO PRN (08:14)
[2018-12-06] MEDS ORDERED: Loperamide HCl 2 MG CAP PO PRN (08:14)
[2018-12-06] MEDS ORDERED: Ondansetron PF 4 MG/2 ML Vial IVP PRN (08:14)
[2018-12-06] MEDS ORDERED: Eucerin (Mineral Oil/Petrolatum,White) 30 gm Jar TOP PRN (08:14)
[2018-12-06] MEDS: Apixaban 5 MG TAB PO SCH ×2 (09:09→20:13)
[2018-12-06] MEDS: Vancomycin HCl 1 GM in Premix Bag 1 BAG IVPB SCH ×2 (09:09→21:43)
[2018-12-06] MEDS: Famotidine 20 MG TAB PO SCH ×2 (09:09→20:13)
--- NOTE | 2018-12-06 09:33 | PRG ---
DATE OF SERVICE: 12/06/2018 SUBJECTIVE: The patient remains in CCU, continued to have problems with his breathing. OBJECTIVE: VITAL SIGNS: On exam, temperature 98.0, pulse 106, and blood pressure 126/83. He is on a Cardizem drip at 15 mg/hours. Total intake for 24 hours 2645 and output 1020. HEENT: Unremarkable. NECK: No JVD. LUNGS: Coarse rhonchi. CARDIAC: S1 and S2. Irregularly irregular. Tachycardic. ABDOMEN: Soft and nontender. EXTREMITIES: No edema. LABORATORY DATA: Sodium 131, potassium 3.3, chloride 101, CO2 of 18, BUN 20, creatinine 0.8, and glucose 163. White blood cell count 27.5, hematocrit 31.4, and platelet count 136 with the totality, the white count is normal and small lymphocytes. Chest x-ray shows continued bilateral infiltrates right greater than left. ASSESSMENT: 1. Bilateral pneumonia. 2. Question of concurrent heart failure. 3. Mild hyponatremia, which may be an indication of his fluid overload. 4. Hypokalemia. PLAN: 1. Replace potassium. 2. Add digoxin for better control of atrial fibrillation. 3. Continue antibiotics, steroids, and nebulization treatments. 4. Keep in CCU for the time being. Job ID: [id number]
[2018-12-06] MEDS: Saccharomyces boulardii 250 MG CAP PO SCH (09:50)
[2018-12-06] MEDS: Digoxin 0.5 MG/2 ML AMP SLOW IVP SCH ×3 (09:51→20:14)
--- NOTE | 2018-12-06 11:01 | PDOC.PN ---
- Subjective Encounter Start Date: 12/06/18 Encounter Start Time: 09:30 -: old records requested/rev Patient seen and examined. No new complaints. No overnight events has cough - Objective Resuscitation Status - Order Detail: 12/05/18 13:39 Resuscitation Status Routine Resuscitation Status: FULL: Full Resuscitation Discussed with: patient SHANTAL Reviewed: Yes Vital Signs & Weight: Vital Signs (12 hours) Temp Pulse Resp Pulse Ox 12/06/18 09:51 100 12/06/18 08:00 97 12/06/18 07:20 96 12/06/18 07:19 100 21 H 96 12/06/18 07:00 98 F 12/06/18 03:00 97.7 F 12/06/18 02:00 109 H 21 H 96 12/05/18 23:00 97.5 F L Most Recent Monitor Data Heart Rate from ECG 102 NIBP 139/72 NIBP BP-Mean 94 Respiration from ECG 25 SpO2 93 I&O: 12/05/18 12/06/18 12/07/18 06:59 06:59 06:59 Intake Total 2645 375 Output Total 1020 300 Balance 1625 75 Result Diagrams: 12/06/18 04:24 12/06/18 04:24 Radiology Reviewed by me: Yes EKG Reviewed by me: Yes Phys Exam - Physical Examination Constitutional: NAD HEENT: PERRLA, moist MMs, sclera anicteric Neck: no JVD, supple Respiratory: no wheezing, no rhonchi scattered rales+ Cardiovascular: no significant murmur, no rub, irregular Gastrointestinal: soft, non-tender, no distention, positive bowel sounds Musculoskeletal: no edema, pulses present Neurological: non-focal, normal sensation, moves all 4 limbs Lymphatic: no nodes Psychiatric: normal affect, A&O x 3 Skin: no rash, normal turgor Dx/Plan (1) Bilateral pneumonia Code(s): J18.9 - PNEUMONIA, UNSPECIFIED ORGANISM Status: Acute (2) Hypokalemia Code(s): E87.6 - HYPOKALEMIA Status: Acute (3) Hyponatremia Code(s): E87.1 - HYPO-OSMOLALITY AND HYPONATREMIA Status: Acute (4) Atrial fibrillation Code(s): I48.91 - UNSPECIFIED ATRIAL FIBRILLATION Status: Chronic (5) BPH (benign prostatic hyperplasia) Code(s): N40.0 - BENIGN PROSTATIC HYPERPLASIA WITHOUT LOWER URINRY TRACT SYMP Status: Chronic Qualifiers: Comment: stable, continue Flomax (6) CLL (chronic lymphocytic leukemia) Code(s): C91.90 - LYMPHOID LEUKEMIA, UNSPECIFIED NOT HAVING ACHIEVED REMISSION Status: Chronic (7) Chronic systolic heart failure, ACC/AHA stage C Code(s): I50.22 - CHRONIC SYSTOLIC (CONGESTIVE) HEART FAILURE Status: Chronic (8) Dyslipidemia Code(s): E78.5 - HYPERLIPIDEMIA, UNSPECIFIED Status: Chronic Comment: continue gemfibrozil (9) GERD (gastroesophageal reflux disease) Code(s): K21.9 - GASTRO-ESOPHAGEAL REFLUX DISEASE WITHOUT ESOPHAGITIS Status: Chronic Qualifiers: Comment: continue PPI (10) Macrocytic anemia Code(s): D53.9 - NUTRITIONAL ANEMIA, UNSPECIFIED Status: Chronic - Plan cont current plan of care, continue antibiotics * continue cardizem for rate control * continue IV antibiotics as ordered, levaquin and vacnomycin * pulmonary consulted * medication reviewed as below * symptomatic treatment. Review of Systems - Review of Systems Constitutional: weakness. negative: fever, chills, sweats, malaise, other Respiratory: Cough, Sputum. negative: Dry, Shortness of Breath, Hemoptysis, SOB with Excertion, Pleuritic Pain, Wheezing Cardiovascular: negative: chest pain, palpitations, orthopnea, paroxysmal nocturnal dyspnea, edema, light headedness, other Gastrointestinal: negative: Nausea, Vomiting, Abdominal Pain, Diarrhea, Constipation, Melena, Hematochezia, Other Genitourinary: negative: Dysuria, Frequency, Incontinence, Hematuria, Retention , Other Musculoskeletal: negative: Neck Pain, Shoulder Pain, Arm Pain, Back Pain, Hand Pain, Leg Pain, Foot Pain, Other Skin: negative: Rash, Lesions, Yury, Bruising, Other Neurological: negative: Weakness, Numbness, Incoordination, Change in Speech, Confusion, Seizures, Other - Medications/Allergies Allergies/Adverse Reactions: Allergies Allergy/AdvReac Type Severity Reaction Status Date / Time No Known Drug Allergies Allergy Verified 06/01/18 05:50 Medications: Current Medications Acetaminophen (Tylenol) 650 mg PO Q4H PRN PRN Reason: Headache/Fever Acetaminophen (Tylenol) 500 mg PO Q6H PRN PRN Reason: Mild Pain (1-3) Albuterol/Ipratropium (Duoneb) 3 ml EZPAP [id number] [facility] Last Admin: 12/06/18 10:59 Dose: 3 ml Apixaban (Eliquis) 5 mg PO BID [facility] Last Admin: 12/06/18 09:09 Dose: 5 mg Artificial Tears (Tears Naturale) 2 drop EA EYE PRN PRN PRN Reason: Dry Eyes Bisacodyl (Dulcolax) 10 mg PO DAILYPRN PRN PRN Reason: Constipation Calcium Carbonate (Tums) 1,000 mg PO Q4H PRN PRN Reason: Heartburn or Indigestion Digoxin (Lanoxin) 0.25 mg SLOW IVP Q6H [facility] Stop: 12/06/18 21:01 Last Admin: 12/06/18 09:51 Dose: 0.25 mg Famotidine (Pepcid) 20 mg PO BID [facility] Last Admin: 12/06/18 09:09 Dose: 20 mg Guaifenesin (Robitussin Sf) 200 mg PO Q4H PRN PRN Reason: Cough Guaifenesin/Dextromethorphan (Robitussin Dm) 10 ml PO Q6H PRN PRN Reason: Cough Hydralazine HCl (Apresoline) 10 mg SLOW IVP Q4H PRN PRN Reason: SBP > 180 and HR < 70 Ascorbic Acid 1,500 mg/ Sodium (Chloride) 53 mls @ 100 mls/hr IVPB Q6HR [facility] Stop: 12/09/18 12:01 Last Admin: 12/06/18 05:46 Dose: 53 mls Levofloxacin 750 mg/ Device 150 mls @ 100 mls/hr IVPB 1200 [facility] Last Admin: 12/05/18 12:36 Dose: 150 mls Thiamine HCl 200 mg/ Sodium (Chloride) 52 mls @ 100 mls/hr IVPB 1200,2359 [facility] Stop: 12/09/18 00:31 Last Admin: 12/05/18 23:23 Dose: 52 mls Vancomycin HCl 1 gm/ Device 200 mls @ 200 mls/hr IVPB 1000,2200 [facility] Last Admin: 12/06/18 09:09 Dose: 200 mls Diltiazem HCl 125 mg/ Sodium (Chloride) 125 mls @ 0 mls/hr IVPB INF [facility]; Protocol Last Admin: 12/06/18 05:46 Dose: 125 mls Potassium Chloride 40 meq/ (Sodium Chloride) 270 mls @ 135 mls/hr IVPB ASDIR PRN PRN Reason: FOR SERUM K+ 2.5 - 3.5 Potassium Chloride 40 meq/ (Device) 100 mls @ 50 mls/hr IVPB ASDIR PRN PRN Reason: FOR SERUM K+ 2.5 - 3.5 Magnesium Sulfate 1 gm/ Sodium (Chloride) 102 mls @ 102 mls/hr IV PRN PRN PRN Reason: MAG LEVEL 1.4 - 2.0 Magnesium Sulfate 2 gm/ Device 50 mls @ 50 mls/hr IVPB ASDIR PRN PRN Reason: MAGNESIUM < 1.4 Potassium Phosphate 9 mmol/ (Sodium Chloride) 103 mls @ 25.75 mls/hr IVPB ASDIR PRN PRN Reason: Phosphate 1.0-1.8 Potassium Phosphate 12 mmol/ (Sodium Chloride) 254 mls @ 63.5 mls/hr IV ASDIR PRN PRN Reason: Serum phosphate 0.5-0.9 Potassium Phosphate 15 mmol/ (Sodium Chloride) 255 mls @ 63.75 mls/hr IV ASDIR PRN PRN Reason: Serum Phos < 0.5 Loperamide HCl (Imodium) 2 mg PO PRN PRN PRN Reason: Diarrhea/Loose Stools Loratadine (Claritin) 10 mg PO DAILYPRN PRN PRN Reason: Sinus Symptoms Magnesium Oxide (Magnesium Oxide) 400 mg PO BIDPRN PRN PRN Reason: FOR SERUM MAG 1.4 - 2.0 Magnesium Oxide (Magnesium Oxide) 800 mg PO PRN PRN PRN Reason: FOR SERUM MAG < 1.4 Methylprednisolone Sodium Succinate (Solu-Medrol) 40 mg IVP Q6HR [facility] Last Admin: 12/06/18 05:42 Dose: 40 mg Mineral Oil/White Petrolatum (Eucerin Cream) 0 gm TOP BIDPRN PRN PRN Reason: Dry Skin Miscellaneous Medication (Phos-Nak) 1 pkt PO TIDPRN PRN PRN Reason: FOR PHOS LEVEL 1.0 - 1.8 Miscellaneous Medication (Phos-Nak) 2 pkt PO TIDPRN PRN PRN Reason: FOR PHOS LEVEL 0.5 - 1.0 Nicotine (Nicoderm Patch) 21 mg TD Q24HR [facility] Last Admin: 12/05/18 16:41 Dose: 21 mg Ccu Electrolyte (Replacement Protocol) 0 each FS PRN PRN PRN Reason: FOR ELECTROLYTE REPLACEMENT Ondansetron HCl (Zofran Odt) 4 mg SL Q6H PRN PRN Reason: Nausea/Vomiting Ondansetron HCl (Zofran) 4 mg IVP Q6H PRN PRN Reason: Nausea/Vomiting Potassium Chloride (K-Dur) 40 meq PO ASDIR PRN PRN Reason: FOR SERUM K+ 2.5 - 3.5 Last Admin: 12/06/18 06:19 Dose: 40 meq Potassium Chloride (Klor-Con) 40 meq PER TUBE ASDIR PRN PRN Reason: FOR SERUM K+ 2.5-3.5 Saccharomyces Boulardii (Florastor) 250 mg PO DAILY [facility] Last Admin: 12/06/18 09:50 Dose: 250 mg Sodium Chloride (Flush - Normal Saline) 10 ml IVF Q12HR [facility] Last Admin: 12/06/18 09:55 Dose: 10 ml Sodium Chloride (Flush - Normal Saline) 10 ml IVF PRN PRN PRN Reason: Saline Flush Sodium Chloride ([place] Nasal [place] 0.65%) 0 ml EA NARE QIDPRN PRN PRN Reason: Nasal Congestion Sterile Water (Bacteriostatic Water) 1 ml FS PRN PRN PRN Reason: RECONSTITUTION Throat Lozenges (Cepastat Lozenges) 1 conor PO Q2H PRN PRN Reason: Sore Throat
[2018-12-06] MEDS: Nicotine 21 MG PATCH TD SCH (15:42)
[2018-12-06 15:48] LABS: Potassium 3.6 mmol/L (3.5-5.1)
[2018-12-06] MEDS ORDERED: Guaifenesin DM 100-10/5 ML UDCUP PO PRN (20:00)
[2018-12-06 21:31] LABS: Vancomycin, Trough 12.4 ug/mL
[2018-12-07] MEDS: methylPREDNISolone Sod Succ 40 MG VIAL IVP SCH ×3 (05:27→17:30)
[2018-12-07 05:42] LABS: Anion Gap 17 mmol/L (10-20); BUN (Urea Nitrogen) 25 mg/dL (8.4-25.7); Calc. Creatinine Clearance 0 mL/min (70-130); Calcium 9.6 mg/dL (7.8-10.44); Carbon Dioxide 20 mmol/L (23-31); Chloride 99 mmol/L (98-107); Estimated GFR-MDRD 89; Glucose 137 mg/dL (83-110); Magnesium 1.8 mg/dL (1.6-2.6); Phosphorus 3.6 mg/dL (2.3-4.7); Potassium 3.4 mmol/L (3.5-5.1); Sodium 133 mmol/L (136-145)
[2018-12-07 05:53] LABS: Hemoglobin 14.1 g/dL (14.0-18.0); Mean Corpuscular HGB CONC 32.6 g/dL (32.0-36.0); Mean Corpuscular Hemoglobin 36.8 pg (27.0-31.0); Mean Platelet Volume 7.4 fL (7.4-10.4); Platelet Count 158 thou/uL (130-400); RBC Distribution Width 13.3 % (11.5-14.5); Red Blood Cell (RBC) Count 3.84 mill/uL (4.70-6.10); White Blood Cell (WBC) Count 27.8 thou/uL (4.8-10.8)
[2018-12-07 05:54] LABS: Lymphocytes 92 % (21-51); MDiff Complete? YES; Macrocytosis SLIGHT = 6-15 cells (100X) (0-5/hpf); Monocytes 1 % (0-10); Neutrophil 7 % (42-75); Platelet Morphology Comment Appears Adequate
--- NOTE | 2018-12-07 07:43 | RAD ---
EXAM: CHEST ONE VIEW HISTORY: Pneumonia COMPARISON: 12/06/2018 FINDINGS: The cardiac silhouette and pulmonary vasculature is within normal limits. Again noted are parenchymal opacities within the midlung zones in each lung base overall similar to the prior exam suggesting bilateral pneumonia. There is probable small right pleural effusion. The osseous structures are intac t. Vascular calcifications are again seen in the thoracic aorta. IMPRESSION: Stable parenchymal opacities each lung base worrisome for bibasilar pneumonia. Atypical pneumonia is a possibility. Follow-up to resolution is recommended.
[2018-12-07] MEDS: Saccharomyces boulardii 250 MG CAP PO SCH (08:53)
[2018-12-07] MEDS: Apixaban 5 MG TAB PO SCH ×2 (08:54→19:49)
[2018-12-07] MEDS: Vancomycin HCl 1 GM in Premix Bag 1 BAG IVPB SCH ×2 (08:54→21:23)
[2018-12-07] MEDS: Diltiazem 125 MG in Sodium Chloride 0.9% 100 ML IVPB SCH ×2 (08:55→16:02)
[2018-12-07] MEDS: Digoxin 0.125 MG TAB PO SCH (08:56)
[2018-12-07] MEDS: Famotidine 20 MG TAB PO SCH ×2 (09:00→19:49)
--- NOTE | 2018-12-07 10:12 | PRG ---
DATE OF SERVICE: 12/07/2018 SUBJECTIVE: The patient feels somewhat better today. He wants to get up in a chair. OBJECTIVE: VITAL SIGNS: Temperature 97.9, pulse 90, blood pressure 132/88, O2 saturation 94%. A 24-hour intake 1732, output 2325. HEENT: Unremarkable. NECK: No JVD. CHEST: Crackles at bases. CARDIAC: S1 and S2. Irregularly irregular. ABDOMEN: Soft, nontender. EXTREMITIES: No edema. LABORATORY DATA: Sodium 133, potassium 3.4, chloride 99, CO2 of 20, BUN 25, creatinine 0.8, glucose 137. White blood cell count 27.8, hematocrit 43.4, and platelet count 158. ASSESSMENT: 1. Bilateral pneumonia-not much change on the x-ray, but overall clinical improvement. 2. Chronic lymphocytic leukemia. 3. Atrial fibrillation with rapid ventricular response. 4. Slightly diminished ejection fraction on echo-50% to 55%. 5. Hypokalemia. PLAN: 1. Start Cardizem CD and try to wean off the Cardizem drip. 2. Continue the antibiotics, steroids, and nebulization treatments. 3. Replace potassium. 4. Check digoxin level tomorrow. 5. Move to [facility]. Job ID: [id number]
[2018-12-07] MEDS ORDERED: Spironolactone 25 MG TAB PO SCH ×2 (11:00→11:15)
--- NOTE | 2018-12-07 11:20 | CON ---
DATE OF CONSULTATION: PRIMARY GENERAL MANAGER ROAD PRODUCTION: Augie Price MD REASON FOR CONSULTATION: Atrial fibrillation with a rapid rate. HISTORY OF PRESENT ILLNESS: Mr. Javan Reeves is a 78-year-old gentleman with history of atrial fibrillation. He was admitted on this occasion with difficulty breathing and respiratory insufficiency, thought to have pneumonia. The patient developed a very rapid atrial fibrillation while here and was required to start on intravenous diltiazem. The patient still feels very short of breath. PAST MEDICAL HISTORY: 1. Chronic lymphocytic leukemia diagnosed 20 years ago. 2. Atrial fibrillation. 3. COPD. 4. Hypertension. 5. Esophageal reflux. PAST SURGICAL HISTORY: Right ankle surgery. SOCIAL HISTORY: Drinks three alcoholic drinks per day. CODE STATUS: Full code. REVIEW OF SYSTEMS: CONSTITUTIONAL: Positive for weakness and fatigue. VISION: No changes. HEARING: No changes. PULMONARY: Positive for shortness of breath. CARDIAC: No chest pain. GASTROINTESTINAL: No nausea, vomiting, or diarrhea. SKIN: No rashes. PHYSICAL EXAMINATION: GENERAL: This is a very pleasant 78-year-old man, states he is feeling better, but still having some difficulty breathing. VITAL SIGNS: Blood pressure is 139/74, pulse is 100 to 110, it is irregularly irregular. LUNGS: Expiratory wheezing and some rhonchi. CARDIAC: Irregularly irregular. No murmur, rub, or gallop heard. Heart sounds somewhat distant. ABDOMEN: Soft, nontender. EXTREMITIES: Warm, dry. No clubbing or cyanosis. No edema. ABDOMEN: Soft and nontender. PERTINENT LABORATORY DATA: Potassium is 3.4. BNP 1000.6. Most recent echocardiogram was done actually yesterday, ejection fraction 50% to 55%. EKG reveals atrial fibrillation. No acute ST or T-wave changes on the . ASSESSMENT: 1. Atrial fibrillation, chronic, now with increased rate. 2. Diastolic congestive heart failure based on increased BNP. 3. Hypokalemia. PLAN: 1. He is on intravenous diltiazem. 2. Continue to replete potassium. 3. Will likely need some diuretic therapy. We will start him on spironolactone. 4. Dr. Price to see the patient tomorrow. ADDENDUM: The patient is on Eliquis for anticoagulation and also has received intravenous digoxin. Job ID: [id number]
--- NOTE | 2018-12-07 12:12 | PQF ---
CLINICAL DOCUMENTATION IMPROVEMENT CLARIFICATION FORM: ICD-10 Updated PLEASE DO AN ADDENDUM TO THE PROGRESS NOTE WITH ANY DOCUMENTATION UPDATES OR ADDITIONS AND CARRY THROUGH TO DC SUMMARY. THANK YOU. DATE: 12/07/18 ATTN: DR. EASLEY Please exercise your independent, professional judgment in responding to the clarification form. Clinical indicators are provided on the bottom of this form for your review Please check appropriate box(es): [x ] Sepsis due to: (Pna, UTI, gangrenous gall bladder, etc.) ___pneumonia____ Due to: [ ] Device (please specify) [ ] Implant [ ] Graft [ ] Infusion [ ] SIRS due to non-infectious process (please specify etiology) [ ] with organ dysfunction [ ] without organ dysfunction [ x ] Severe sepsis with acute organ dysfunction of: __acute respi failure (Examples: respiratory failure, encephalopathy, acute kidney failure, other) [ ] Septic Shock [ ] Localized infection without sepsis [ ] Other diagnosis [ ] Unable to determine In addition, please specify: Present on Admission (POA): [x ] Yes [ ] No [ ] Unable to determine For continuity of documentation, please document condition throughout progress notes and discharge summary. Thank You. CLINICAL INDICATORS - SIGNS / SYMPTOMS / LABS ER NOTE: "SEPSIS" PULSE 121 RR 24 WBC: 27.8 RISKS: PNEUMONIA ADVANCED AGE TREATMENT: BLOOD AND URINE CULTURES IV VANCOMYCIN (ER-PRESENT) IV CEFEPIME (ER) IV LEVAQUIN (12/05-PRESENT) IV FLUIDS (ER) MONITORING IN CRITICAL CARE (This form is maintained as a part of the permanent medical record) 2014 [employer]. All Rights Reserved [email or web address] Office: [phone] [facility]
[2018-12-07] MEDS: Bacteriostatic Water 30 ML VIAL FS PRN ×2 (12:25→17:30)
--- NOTE | 2018-12-07 13:21 | PDOC.PN ---
- Subjective Encounter Start Date: 12/07/18 Encounter Start Time: 07:30 pt still has fib with RVR, on cardizem drip, no fever - Objective Resuscitation Status - Order Detail: 12/05/18 13:39 Resuscitation Status Routine Resuscitation Status: FULL: Full Resuscitation Discussed with: patient SHANTAL Reviewed: Yes Vital Signs & Weight: Vital Signs (12 hours) Temp Pulse Resp BP Pulse Ox 12/07/18 11:40 94 L 12/07/18 11:02 80 20 12/07/18 08:56 91 12/07/18 08:55 91 151/68 H 12/07/18 08:00 98.0 F 92 L 12/07/18 07:39 91 20 94 L 12/07/18 04:00 97.9 F 12/07/18 03:50 95 Weight Admit Weight 153 lb 14.122 oz Most Recent Monitor Data Heart Rate from ECG 81 NIBP 126/67 NIBP BP-Mean 86 Respiration from ECG 26 SpO2 92 I&O: 12/06/18 12/07/18 12/08/18 06:59 06:59 06:59 Intake Total 2645 1732 515 Output Total 1020 2325 Balance 1625 -593 515 Result Diagrams: 12/07/18 05:21 12/07/18 05:21 Radiology Reviewed by me: Yes EKG Reviewed by me: Yes Phys Exam - Physical Examination Constitutional: NAD HEENT: PERRLA, moist MMs, sclera anicteric Neck: no JVD, supple Respiratory: no wheezing, no rhonchi basal rales+ Cardiovascular: no significant murmur, irregular Gastrointestinal: soft, non-tender, no distention, positive bowel sounds Musculoskeletal: no edema, pulses present Neurological: non-focal, normal sensation Lymphatic: no nodes Psychiatric: normal affect, A&O x 3 Skin: no rash, normal turgor Dx/Plan (1) Bilateral pneumonia Code(s): J18.9 - PNEUMONIA, UNSPECIFIED ORGANISM Status: Acute (2) Hypokalemia Code(s): E87.6 - HYPOKALEMIA Status: Acute (3) Hyponatremia Code(s): E87.1 - HYPO-OSMOLALITY AND HYPONATREMIA Status: Acute (4) Atrial fibrillation Code(s): I48.91 - UNSPECIFIED ATRIAL FIBRILLATION Status: Chronic Qualifiers: Atrial fibrillation type: chronic Qualified Code(s): I48.2 - Chronic atrial fibrillation Comment: with RVR (5) BPH (benign prostatic hyperplasia) Code(s): N40.0 - BENIGN PROSTATIC HYPERPLASIA WITHOUT LOWER URINRY TRACT SYMP Status: Chronic Qualifiers: Comment: stable, continue Flomax (6) CLL (chronic lymphocytic leukemia) Code(s): C91.90 - LYMPHOID LEUKEMIA, UNSPECIFIED NOT HAVING ACHIEVED REMISSION Status: Chronic (7) Chronic systolic heart failure, ACC/AHA stage C Code(s): I50.22 - CHRONIC SYSTOLIC (CONGESTIVE) HEART FAILURE Status: Chronic (8) Dyslipidemia Code(s): E78.5 - HYPERLIPIDEMIA, UNSPECIFIED Status: Chronic Comment: continue gemfibrozil (9) GERD (gastroesophageal reflux disease) Code(s): K21.9 - GASTRO-ESOPHAGEAL REFLUX DISEASE WITHOUT ESOPHAGITIS Status: Chronic Qualifiers: Comment: continue PPI (10) Macrocytic anemia Code(s): D53.9 - NUTRITIONAL ANEMIA, UNSPECIFIED Status: Chronic (11) Acute respiratory failure with hypoxia Code(s): J96.01 - ACUTE RESPIRATORY FAILURE WITH HYPOXIA Status: Acute (12) Sepsis with acute organ dysfunction Code(s): A41.9 - SEPSIS, UNSPECIFIED ORGANISM; R65.20 - SEVERE SEPSIS WITHOUT SEPTIC SHOCK Status: Acute - Plan cont current plan of care, continue antibiotics * medication reviewed as below * symptomatic treatment * consult cardiology today for afib with RVR * continue cardizem drip * continue current iv antibiotics * transferred to [facility]. * replace potassium Review of Systems - Review of Systems ENT: negative: Ear Pain, Ear Discharge, Nose Pain, Nose Discharge, Nose Congestion, Mouth Pain, Mouth Swelling, Throat Pain, Throat Swelling, Other Respiratory: negative: Cough, Dry, Shortness of Breath, Hemoptysis, SOB with Excertion, Pleuritic Pain, Sputum, Wheezing Cardiovascular: negative: chest pain, palpitations, orthopnea, paroxysmal nocturnal dyspnea, edema, light headedness, other Gastrointestinal: negative: Nausea, Vomiting, Abdominal Pain, Diarrhea, Constipation, Melena, Hematochezia, Other Genitourinary: negative: Dysuria, Frequency, Incontinence, Hematuria, Retention , Other Musculoskeletal: negative: Neck Pain, Shoulder Pain, Arm Pain, Back Pain, Hand Pain, Leg Pain, Foot Pain, Other - Medications/Allergies Allergies/Adverse Reactions: Allergies Allergy/AdvReac Type Severity Reaction Status Date / Time No Known Drug Allergies Allergy Verified 06/01/18 05:50 Medications: Current Medications Acetaminophen (Tylenol) 500 mg PO Q6H PRN PRN Reason: Mild Pain (1-3) Albuterol/Ipratropium (Duoneb) 3 ml EZPAP [id number] [facility] Last Admin: 12/07/18 11:02 Dose: 3 ml Apixaban (Eliquis) 5 mg PO BID [facility] Last Admin: 12/07/18 08:54 Dose: 5 mg Artificial Tears (Tears Naturale) 2 drop EA EYE PRN PRN PRN Reason: Dry Eyes Bisacodyl (Dulcolax) 10 mg PO DAILYPRN PRN PRN Reason: Constipation Calcium Carbonate (Tums) 1,000 mg PO Q4H PRN PRN Reason: Heartburn or Indigestion Digoxin (Lanoxin) 0.125 mg PO DAILY [facility] Last Admin: 12/07/18 08:56 Dose: 0.125 mg Diltiazem HCl (Cardizem Cd) 240 mg PO DAILY [facility] Last Admin: 12/07/18 08:55 Dose: 240 mg Famotidine (Pepcid) 20 mg PO BID [facility] Last Admin: 12/07/18 09:00 Dose: 20 mg Guaifenesin (Robitussin Sf) 200 mg PO Q4H PRN PRN Reason: Cough Guaifenesin/Dextromethorphan (Robitussin Dm) 10 ml PO Q6H PRN PRN Reason: Cough Last Admin: 12/06/18 20:12 Dose: 10 ml Hydralazine HCl (Apresoline) 10 mg SLOW IVP Q4H PRN PRN Reason: SBP > 180 and HR < 70 Ascorbic Acid 1,500 mg/ Sodium (Chloride) 53 mls @ 100 mls/hr IVPB Q6HR [facility] Stop: 12/09/18 12:01 Last Admin: 12/07/18 12:25 Dose: 53 mls Levofloxacin 750 mg/ Device 150 mls @ 100 mls/hr IVPB 1200 [facility] Last Admin: 12/07/18 12:24 Dose: 150 mls Thiamine HCl 200 mg/ Sodium (Chloride) 52 mls @ 100 mls/hr IVPB 1200,2359 [facility] Stop: 12/09/18 00:31 Last Admin: 12/07/18 12:38 Dose: 52 mls Vancomycin HCl 1 gm/ Device 200 mls @ 200 mls/hr IVPB 1000,2200 [facility] Last Admin: 12/07/18 08:54 Dose: 200 mls Diltiazem HCl 125 mg/ Sodium (Chloride) 125 mls @ 0 mls/hr IVPB INF [facility]ESSICA; Protocol Last Admin: 12/07/18 08:55 Dose: 125 mls Potassium Chloride 40 meq/ (Sodium Chloride) 270 mls @ 135 mls/hr IVPB ASDIR PRN PRN Reason: FOR SERUM K+ 2.5 - 3.5 Potassium Chloride 40 meq/ (Device) 100 mls @ 50 mls/hr IVPB ASDIR PRN PRN Reason: FOR SERUM K+ 2.5 - 3.5 Magnesium Sulfate 1 gm/ Sodium (Chloride) 102 mls @ 102 mls/hr IV PRN PRN PRN Reason: MAG LEVEL 1.4 - 2.0 Magnesium Sulfate 2 gm/ Device 50 mls @ 50 mls/hr IVPB ASDIR PRN PRN Reason: MAGNESIUM < 1.4 Potassium Phosphate 9 mmol/ (Sodium Chloride) 103 mls @ 25.75 mls/hr IVPB ASDIR PRN PRN Reason: Phosphate 1.0-1.8 Potassium Phosphate 12 mmol/ (Sodium Chloride) 254 mls @ 63.5 mls/hr IV ASDIR PRN PRN Reason: Serum phosphate 0.5-0.9 Potassium Phosphate 15 mmol/ (Sodium Chloride) 255 mls @ 63.75 mls/hr IV ASDIR PRN PRN Reason: Serum Phos < 0.5 Loperamide HCl (Imodium) 2 mg PO PRN PRN PRN Reason: Diarrhea/Loose Stools Loratadine (Claritin) 10 mg PO DAILYPRN PRN PRN Reason: Sinus Symptoms Magnesium Oxide (Magnesium Oxide) 400 mg PO BIDPRN PRN PRN Reason: FOR SERUM MAG 1.4 - 2.0 Magnesium Oxide (Magnesium Oxide) 800 mg PO PRN PRN PRN Reason: FOR SERUM MAG < 1.4 Methylprednisolone Sodium Succinate (Solu-Medrol) 40 mg IVP Q6HR [facility] Last Admin: 12/07/18 12:25 Dose: 40 mg Mineral Oil/White Petrolatum (Eucerin Cream) 0 gm TOP BIDPRN PRN PRN Reason: Dry Skin Miscellaneous Medication (Phos-Nak) 1 pkt PO TIDPRN PRN PRN Reason: FOR PHOS LEVEL 1.0 - 1.8 Miscellaneous Medication (Phos-Nak) 2 pkt PO TIDPRN PRN PRN Reason: FOR PHOS LEVEL 0.5 - 1.0 Nicotine (Nicoderm Patch) 21 mg TD Q24HR [facility] Last Admin: 12/06/18 15:42 Dose: 21 mg Ccu Electrolyte (Replacement Protocol) 0 each FS PRN PRN PRN Reason: FOR ELECTROLYTE REPLACEMENT Ondansetron HCl (Zofran Odt) 4 mg SL Q6H PRN PRN Reason: Nausea/Vomiting Ondansetron HCl (Zofran) 4 mg IVP Q6H PRN PRN Reason: Nausea/Vomiting Potassium Chloride (K-Dur) 40 meq PO ASDIR PRN PRN Reason: FOR SERUM K+ 2.5 - 3.5 Last Admin: 12/06/18 06:19 Dose: 40 meq Potassium Chloride (Klor-Con) 40 meq PER TUBE ASDIR PRN PRN Reason: FOR SERUM K+ 2.5-3.5 Saccharomyces Boulardii (Florastor) 250 mg PO DAILY [facility] Last Admin: 12/07/18 08:53 Dose: 250 mg Sodium Chloride (Flush - Normal Saline) 10 ml IVF Q12HR [facility] Last Admin: 12/07/18 11:01 Dose: 10 ml Sodium Chloride (Flush - Normal Saline) 10 ml IVF PRN PRN PRN Reason: Saline Flush Sodium Chloride ([place] Nasal [place] 0.65%) 0 ml EA NARE QIDPRN PRN PRN Reason: Nasal Congestion Spironolactone (Aldactone) 25 mg PO QAM-[facility] Sterile Water (Bacteriostatic Water) 1 ml FS PRN PRN PRN Reason: RECONSTITUTION Last Admin: 12/07/18 12:25 Dose: 1 ml Throat Lozenges (Cepastat Lozenges) 1 conor PO Q2H PRN PRN Reason: Sore Throat
[2018-12-07] MEDS: Nicotine 21 MG PATCH TD SCH (13:26)
[2018-12-08] MEDS: Diltiazem 125 MG in Sodium Chloride 0.9% 100 ML IVPB SCH (01:25)
[2018-12-08] MEDS ORDERED: Lorazepam 2 MG/ML VIAL SLOW IVP SCH (01:30)
[2018-12-08] MEDS: methylPREDNISolone Sod Succ 40 MG VIAL IVP SCH ×4 (01:33→20:32)
[2018-12-08 04:55] LABS: Anion Gap 12 mmol/L (10-20); BUN (Urea Nitrogen) 34 mg/dL (8.4-25.7); Calc. Creatinine Clearance 0 mL/min (70-130); Carbon Dioxide 23 mmol/L (23-31); Chloride 101 mmol/L (98-107); Estimated GFR-MDRD Greater than 90; Glucose 147 mg/dL (83-110); Potassium 3.1 mmol/L (3.5-5.1); Sodium 133 mmol/L (136-145)
[2018-12-08 05:25] LABS: Band 1 % (5-11); Hemoglobin 9.5 g/dL (14.0-18.0); Lymphocytes 91 % (21-51); MDiff Complete? YES; Mean Corpuscular HGB CONC 33.2 g/dL (32.0-36.0); Mean Corpuscular Hemoglobin 37.1 pg (27.0-31.0); Mean Platelet Volume 7.1 fL (7.4-10.4); Neutrophil 8 % (42-75); Platelet Count 166 thou/uL (130-400); Platelet Morphology Comment Appears Adequate; RBC Distribution Width 13.4 % (11.5-14.5); Red Blood Cell (RBC) Count 2.56 mill/uL (4.70-6.10); White Blood Cell (WBC) Count 31.7 thou/uL (4.8-10.8)
[2018-12-08] MEDS ORDERED: Ziprasidone 20 MG VIAL IM SCH (07:45)
[2018-12-08] MEDS ORDERED: Diazepam 5 MG TAB PO PRN (08:04)
--- NOTE | 2018-12-08 08:10 | PRG ---
DATE OF SERVICE: 12/08/2018 SUBJECTIVE: The patient is withdrawing from alcohol. He is hallucinating, giving inappropriate answers to questions. OBJECTIVE: VITAL SIGNS: Temperature 97.6, pulse 81, blood pressure 121/62, O2 saturation 94%, 24-hour intake 2238, output 495. HEENT: Unremarkable. NECK: No adenopathy or JVD. LUNGS: Inspiratory crackles bilaterally. CARDIAC: S1, S2. Irregularly irregular, but rate controlled. ABDOMEN: Soft. EXTREMITIES: No edema. LABORATORY DATA: Sodium 133, potassium 3.1, chloride 101, CO2 of 23, BUN 34, creatinine 0.8, glucose 147. White blood cell count 31.7, hematocrit 28.7, and platelet count 166. ASSESSMENT: 1. Alcohol withdrawal. 2. Bilateral pneumonia. 3. Chronic lymphocytic leukemia. 4. Atrial fibrillation, now with a controlled ventricular response. PLAN: 1. Initiate JERI protocol for alcohol withdrawal. 2. Continue rate control of atrial fibrillation and anticoagulation for atrial fibrillation. 3. Continue antibiotics for pneumonia. I will go ahead and discontinue the vancomycin since there has been no growth of MRSA from the cultures. 4. If current medications do not control alcohol withdrawal symptoms, then consider moving back to CCU for initiation of Precedex. Job ID: [id number]
[2018-12-08] MEDS ORDERED: Thiamine HCl 200 MG/2 ML VIAL IM SCH (08:15)
[2018-12-08] MEDS ORDERED: Diazepam 5 MG TAB PO SCH (08:15)
[2018-12-08] MEDS: Saccharomyces boulardii 250 MG CAP PO SCH (08:55)
[2018-12-08] MEDS: Multivitamin W/ Minerals 1 TAB PO SCH (08:55)
[2018-12-08] MEDS: Gabapentin 100 MG CAP PO SCH ×3 (08:55→20:32)
[2018-12-08] MEDS: Folic Acid 1 MG TAB PO SCH (08:56)
[2018-12-08] MEDS: Apixaban 5 MG TAB PO SCH ×2 (08:57→20:31)
[2018-12-08] MEDS: Tamsulosin HCl 0.4 MG CAP PO SCH (08:57)
[2018-12-08] MEDS: Potassium Chloride 20 MEQ TAB PO PRN (08:57)
[2018-12-08] MEDS: Digoxin 0.125 MG TAB PO SCH (08:57)
[2018-12-08] MEDS: Spironolactone 25 MG TAB PO SCH (08:58)
[2018-12-08] MEDS: Famotidine 20 MG TAB PO SCH ×2 (08:58→20:31)
--- NOTE | 2018-12-08 09:29 | PDOC.CTH ---
Cardiology Progress Note - Subjective pt with confusion this am. Relative states last night he was getting up and going to [employer]. He has been reitred for 2 yrs. He has used EtOH in the past - Objective Vital Signs Temp Pulse Resp BP Pulse Ox 12/08/18 08:57 80 12/08/18 08:56 75 136/81 12/08/18 08:00 136/81 12/08/18 07:05 97.6 F 12/08/18 06:54 80 24 H 12/08/18 03:41 97.6 F 12/07/18 23:45 97.9 F 12/07/18 22:29 71 27 H 92 L Admit Weight 153 lb 14.122 oz 12/07/18 12/08/18 12/09/18 06:59 06:59 06:59 Intake Total 1732 2238 Output Total 2325 495 Balance -593 1743 - Physical Examination General/Neuro: NAD Neck: no JVD present Lungs: CTA, unlabored respirations Heart: PMI normal, other: (IRR) Abdomen: NT/ND, soft Extremities: + femoral B - Telemetry Telemetry Rhythm: afib - Labs Result Diagrams: 12/08/18 03:56 12/08/18 03:56 Troponin/CKMB Troponin I Less than 0.010 ng/mL (< 0.028) 12/05/18 09:20 - Assessment/Plan afib Confusion ETOH abuse Pneumonia Continue IV CCB and PO for now Consider increasing po CCB tomorrow On Abx Confusion may be multifactorial (ETOH, no sleep for thtree days, pneumonia, etc) On ACT
[2018-12-08] MEDS: Nicotine 21 MG PATCH TD SCH (13:09)
--- NOTE | 2018-12-08 14:40 | PDOC.PN ---
- Subjective Encounter Start Date: 12/08/18 Encounter Start Time: 10:30 -: old records requested/rev pt has acute delirium, his afib is controlled, bedside - Objective Resuscitation Status - Order Detail: 12/05/18 13:39 Resuscitation Status Routine Resuscitation Status: FULL: Full Resuscitation Discussed with: patient SHANTAL Reviewed: Yes Vital Signs & Weight: Vital Signs (12 hours) Temp Pulse Resp BP Pulse Ox 12/08/18 10:30 97.8 F 12/08/18 10:16 72 21 H 12/08/18 08:57 80 12/08/18 08:56 75 136/81 12/08/18 08:00 136/81 93 L 12/08/18 07:05 97.6 F 12/08/18 06:54 80 24 H 12/08/18 03:41 97.6 F Weight Admit Weight 153 lb 14.122 oz Most Recent Monitor Data Heart Rate from ECG 69 NIBP 114/60 NIBP BP-Mean 78 Respiration from ECG 25 SpO2 88 I&O: 12/07/18 12/08/18 12/09/18 06:59 06:59 06:59 Intake Total 1732 2238 Output Total 2325 495 Balance -593 1743 Result Diagrams: 12/08/18 03:56 12/08/18 03:56 EKG Reviewed by me: Yes (afib) Phys Exam - Physical Examination Constitutional: NAD HEENT: PERRLA, moist MMs, sclera anicteric Neck: no JVD, supple Respiratory: no wheezing, no rales, no rhonchi Cardiovascular: no significant murmur, irregular Gastrointestinal: soft, non-tender, no distention, positive bowel sounds Musculoskeletal: no edema, pulses present Neurological: non-focal, moves all 4 limbs Lymphatic: no nodes Psychiatric: normal affect Skin: no rash, normal turgor Dx/Plan (1) Bilateral pneumonia Code(s): J18.9 - PNEUMONIA, UNSPECIFIED ORGANISM Status: Acute (2) Hypokalemia Code(s): E87.6 - HYPOKALEMIA Status: Acute (3) Hyponatremia Code(s): E87.1 - HYPO-OSMOLALITY AND HYPONATREMIA Status: Acute (4) Atrial fibrillation Code(s): I48.91 - UNSPECIFIED ATRIAL FIBRILLATION Status: Chronic Qualifiers: Atrial fibrillation type: chronic Qualified Code(s): I48.2 - Chronic atrial fibrillation Comment: with RVR (5) BPH (benign prostatic hyperplasia) Code(s): N40.0 - BENIGN PROSTATIC HYPERPLASIA WITHOUT LOWER URINRY TRACT SYMP Status: Chronic Qualifiers: Comment: stable, continue Flomax (6) CLL (chronic lymphocytic leukemia) Code(s): C91.90 - LYMPHOID LEUKEMIA, UNSPECIFIED NOT HAVING ACHIEVED REMISSION Status: Chronic (7) Chronic systolic heart failure, ACC/AHA stage C Code(s): I50.22 - CHRONIC SYSTOLIC (CONGESTIVE) HEART FAILURE Status: Chronic (8) Dyslipidemia Code(s): E78.5 - HYPERLIPIDEMIA, UNSPECIFIED Status: Chronic Comment: continue gemfibrozil (9) GERD (gastroesophageal reflux disease) Code(s): K21.9 - GASTRO-ESOPHAGEAL REFLUX DISEASE WITHOUT ESOPHAGITIS Status: Chronic Qualifiers: Comment: continue PPI (10) Macrocytic anemia Code(s): D53.9 - NUTRITIONAL ANEMIA, UNSPECIFIED Status: Chronic (11) Alcohol withdrawal delirium Code(s): F10.231 - ALCOHOL DEPENDENCE WITH WITHDRAWAL DELIRIUM Status: Acute (12) Acute respiratory failure with hypoxia Code(s): J96.01 - ACUTE RESPIRATORY FAILURE WITH HYPOXIA Status: Acute (13) Sepsis with acute organ dysfunction Code(s): A41.9 - SEPSIS, UNSPECIFIED ORGANISM; R65.20 - SEVERE SEPSIS WITHOUT SEPTIC SHOCK Status: Acute - Plan cont current plan of care, plan discussed w/ family, continue antibiotics, PT/OT , respiratory therapy * replace potassium * start ASC protocol treatment for alcohol withdrawl delirium * continue current antibiotics * solumedrol dose reduced * discussed with * supportive care * medication reviewed as below * symptomatic treatment. Review of Systems - Review of Systems Other: not reliable today due to delirium - Medications/Allergies Allergies/Adverse Reactions: Allergies Allergy/AdvReac Type Severity Reaction Status Date / Time No Known Drug Allergies Allergy Verified 06/01/18 05:50 Medications: Current Medications Acetaminophen (Tylenol) 500 mg PO Q6H PRN PRN Reason: Mild Pain (1-3) Albuterol/Ipratropium (Duoneb) 3 ml EZPAP [id number] Last Admin: 12/08/18 14:38 Dose: 3 ml Apixaban (Eliquis) 5 mg PO BID [facility] Last Admin: 12/08/18 08:57 Dose: 5 mg Artificial Tears (Tears Naturale) 2 drop EA EYE PRN PRN PRN Reason: Dry Eyes Bisacodyl (Dulcolax) 10 mg PO DAILYPRN PRN PRN Reason: Constipation Calcium Carbonate (Tums) 1,000 mg PO Q4H PRN PRN Reason: Heartburn or Indigestion Diazepam (Valium) 10 mg PO Q4H PRN PRN Reason: FOR ASE 10 OR GREATER Stop: 12/09/18 04:00 Diazepam (Valium) 5 mg PO Q4H PRN PRN Reason: FOR ASE 10 OR GREATER Digoxin (Lanoxin) 0.125 mg PO DAILY [facility] Last Admin: 12/08/18 08:57 Dose: 0.125 mg Diltiazem HCl (Cardizem Cd) 240 mg PO DAILY [facility] Last Admin: 12/08/18 08:56 Dose: 240 mg Famotidine (Pepcid) 20 mg PO BID [facility] Last Admin: 12/08/18 08:58 Dose: 20 mg Folic Acid (Folvite) 1 mg PO DAILY [facility] Last Admin: 12/08/18 08:56 Dose: 1 mg Gabapentin (Neurontin) 200 mg PO TID [facility] Last Admin: 12/08/18 08:55 Dose: 200 mg Guaifenesin (Robitussin Sf) 200 mg PO Q4H PRN PRN Reason: Cough Guaifenesin/Dextromethorphan (Robitussin Dm) 10 ml PO Q6H PRN PRN Reason: Cough Last Admin: 12/06/18 20:12 Dose: 10 ml Hydralazine HCl (Apresoline) 10 mg SLOW IVP Q4H PRN PRN Reason: SBP > 180 and HR < 70 Ascorbic Acid 1,500 mg/ Sodium (Chloride) 53 mls @ 100 mls/hr IVPB Q6HR [facility] Stop: 12/09/18 12:01 Last Admin: 12/08/18 11:58 Dose: 53 mls Levofloxacin 750 mg/ Device 150 mls @ 100 mls/hr IVPB 1200 [facility] Last Admin: 12/08/18 11:58 Dose: 150 mls Thiamine HCl 200 mg/ Sodium (Chloride) 52 mls @ 100 mls/hr IVPB 1200,2359 [facility] Stop: 12/09/18 00:31 Last Admin: 12/08/18 11:57 Dose: 52 mls Diltiazem HCl 125 mg/ Sodium (Chloride) 125 mls @ 0 mls/hr IVPB INF [facility]; Protocol Last Admin: 12/08/18 01:25 Dose: 125 mls Potassium Chloride 40 meq/ (Sodium Chloride) 270 mls @ 135 mls/hr IVPB ASDIR PRN PRN Reason: FOR SERUM K+ 2.5 - 3.5 Potassium Chloride 40 meq/ (Device) 100 mls @ 50 mls/hr IVPB ASDIR PRN PRN Reason: FOR SERUM K+ 2.5 - 3.5 Magnesium Sulfate 1 gm/ Sodium (Chloride) 102 mls @ 102 mls/hr IV PRN PRN PRN Reason: MAG LEVEL 1.4 - 2.0 Last Admin: 12/08/18 09:09 Dose: 102 mls Magnesium Sulfate 2 gm/ Device 50 mls @ 50 mls/hr IVPB ASDIR PRN PRN Reason: MAGNESIUM < 1.4 Potassium Phosphate 9 mmol/ (Sodium Chloride) 103 mls @ 25.75 mls/hr IVPB ASDIR PRN PRN Reason: Phosphate 1.0-1.8 Potassium Phosphate 12 mmol/ (Sodium Chloride) 254 mls @ 63.5 mls/hr IV ASDIR PRN PRN Reason: Serum phosphate 0.5-0.9 Potassium Phosphate 15 mmol/ (Sodium Chloride) 255 mls @ 63.75 mls/hr IV ASDIR PRN PRN Reason: Serum Phos < 0.5 Iron/Minerals/Multivitamins (Theragran M) 1 tab PO DAILY [facility] Last Admin: 12/08/18 08:55 Dose: 1 tab Loperamide HCl (Imodium) 2 mg PO PRN PRN PRN Reason: Diarrhea/Loose Stools Loratadine (Claritin) 10 mg PO DAILYPRN PRN PRN Reason: Sinus Symptoms Magnesium Oxide (Magnesium Oxide) 400 mg PO BIDPRN PRN PRN Reason: FOR SERUM MAG 1.4 - 2.0 Magnesium Oxide (Magnesium Oxide) 800 mg PO PRN PRN PRN Reason: FOR SERUM MAG < 1.4 Magnesium Oxide (Magnesium Oxide) 400 mg PO DAILY [facility] Methylprednisolone Sodium Succinate (Solu-Medrol) 20 mg IVP Q12HR [facility] Last Admin: 12/08/18 08:59 Dose: 20 mg Mineral Oil/White Petrolatum (Eucerin Cream) 0 gm TOP BIDPRN PRN PRN Reason: Dry Skin Miscellaneous (Ase Protocol) 1 each FS ASDIR [facility] Miscellaneous Medication (Phos-Nak) 1 pkt PO TIDPRN PRN PRN Reason: FOR PHOS LEVEL 1.0 - 1.8 Miscellaneous Medication (Phos-Nak) 2 pkt PO TIDPRN PRN PRN Reason: FOR PHOS LEVEL 0.5 - 1.0 Nicotine (Nicoderm Patch) 21 mg TD Q24HR [facility] Last Admin: 12/08/18 13:09 Dose: 21 mg Ccu Electrolyte (Replacement Protocol) 0 each FS PRN PRN PRN Reason: FOR ELECTROLYTE REPLACEMENT Ondansetron HCl (Zofran Odt) 4 mg SL Q6H PRN PRN Reason: Nausea/Vomiting Ondansetron HCl (Zofran) 4 mg IVP Q6H PRN PRN Reason: Nausea/Vomiting Potassium Chloride (K-Dur) 40 meq PO ASDIR PRN PRN Reason: FOR SERUM K+ 2.5 - 3.5 Last Admin: 12/08/18 08:57 Dose: 40 meq Potassium Chloride (Klor-Con) 40 meq PER TUBE ASDIR PRN PRN Reason: FOR SERUM K+ 2.5-3.5 Saccharomyces Boulardii (Florastor) 250 mg PO DAILY [facility] Last Admin: 12/08/18 08:55 Dose: 250 mg Sodium Chloride (Flush - Normal Saline) 10 ml IVF Q12HR [facility] Last Admin: 12/08/18 09:00 Dose: 10 ml Sodium Chloride (Flush - Normal Saline) 10 ml IVF PRN PRN PRN Reason: Saline Flush Sodium Chloride ([place] Nasal [place] 0.65%) 0 ml EA NARE QIDPRN PRN PRN Reason: Nasal Congestion Spironolactone (Aldactone) 25 mg PO QAM-WM [facility] Last Admin: 12/08/18 08:58 Dose: 25 mg Sterile Water (Bacteriostatic Water) 1 ml FS PRN PRN PRN Reason: RECONSTITUTION Last Admin: 12/07/18 17:30 Dose: 1 ml Tamsulosin HCl (Flomax) 0.4 mg PO DAILY [facility] Last Admin: 12/08/18 08:57 Dose: 0.4 mg Thiamine HCl (Thiamine) 100 mg PO DAILY [facility] Throat Lozenges (Cepastat Lozenges) 1 conor PO Q2H PRN PRN Reason: Sore Throat
[2018-12-09] MEDS: Diltiazem 125 MG in Sodium Chloride 0.9% 100 ML IVPB SCH ×2 (00:18→00:19)
[2018-12-09] MEDS ORDERED: Diazepam 5 MG TAB PO PRN (04:00)
[2018-12-09 06:31] LABS: Hemoglobin 10.1 g/dL (14.0-18.0); Mean Corpuscular HGB CONC 32.6 g/dL (32.0-36.0); Mean Corpuscular Hemoglobin 36.8 pg (27.0-31.0); Mean Platelet Volume 7.3 fL (7.4-10.4); Platelet Count 211 thou/uL (130-400); RBC Distribution Width 13.6 % (11.5-14.5); Red Blood Cell (RBC) Count 2.75 mill/uL (4.70-6.10); White Blood Cell (WBC) Count 43.1 thou/uL (4.8-10.8)
[2018-12-09 06:55] LABS: Anion Gap 10 mmol/L (10-20); BUN (Urea Nitrogen) 41 mg/dL (8.4-25.7); Calc. Creatinine Clearance 0 mL/min (70-130); Calcium 9.3 mg/dL (7.8-10.44); Carbon Dioxide 27 mmol/L (23-31); Chloride 104 mmol/L (98-107); Estimated GFR-MDRD 86; Glucose 148 mg/dL (83-110); Potassium 3.8 mmol/L (3.5-5.1); Sodium 137 mmol/L (136-145)
[2018-12-09 07:04] LABS: Band 1 % (5-11); Lymphocytes 93 % (21-51); MDiff Complete? YES; Macrocytosis MODERATE=16-30 cells (100X) (0-5/hpf); Neutrophil 6 % (42-75); Platelet Morphology Comment Appears Adequate; Polychromasia SLIGHT = 2-3 cells (100X) (0-2/hpf)
--- NOTE | 2018-12-09 07:18 | PDOC.CTH ---
Cardiology Progress Note - Subjective Doing well. Much more lucid today. - Objective Vital Signs Temp Pulse Resp Pulse Ox 12/09/18 07:07 97.4 F L 12/09/18 04:00 97.8 F 12/09/18 02:06 79 18 95 12/09/18 00:00 97.5 F L 12/08/18 20:00 95 12/08/18 19:31 97.4 F L 12/08/18 19:24 88 19 94 L Admit Weight 153 lb 14.122 oz 12/08/18 12/09/18 12/10/18 06:59 06:59 06:59 Intake Total 2238 1222.5 277.4 Output Total 495 1290 Balance 1743 -67.5 277.4 - Physical Examination General/Neuro: NAD Neck: carotid US brisk, no JVD present Lungs: unlabored respirations Heart: other: (irr) Abdomen: NT/ND, soft Extremities: + femoral B - Labs Result Diagrams: 12/09/18 05:50 12/09/18 05:50 Troponin/CKMB Troponin I Less than 0.010 ng/mL (< 0.028) 12/05/18 09:20 - Assessment/Plan afib Confusion ETOH withdrawal Pneumonia CLL Recs: 12/08 Continue IV CCB and PO for now Consider increasing po CCB tomorrow On Abx Confusion may be multifactorial (ETOH, no sleep for thtree days, pneumonia, etc) On ACT REC: 12/09 DC IV CCB at 11AM Increase PO CCB to 360mg QAM Abx
--- NOTE | 2018-12-09 08:40 | PRG ---
DATE OF SERVICE: 12/09/2018 SUBJECTIVE: Mr. Reeves is much better compared to yesterday. His alcohol withdrawal symptoms have abated. OBJECTIVE: VITAL SIGNS: Temperature 97.4, pulse 92, blood pressure 121/70, O2 saturation 93%. 24 hour intake 1225 and output 1290. HEENT: Unremarkable. NECK: No JVD. LUNGS: Coarse rhonchi, but improved. CARDIAC: S1-S2 regular. ABDOMEN: Soft, nontender. EXTREMITIES: No edema. LABORATORY DATA: Sodium 137, potassium 3.8, chloride 104, CO2 of 27, BUN 41, creatinine 0.8, glucose 148. White blood cell count 43.1, hematocrit 31, platelet count 211 with 93% neutrophils. Digoxin level 0.7. ASSESSMENT: 1. Acute respiratory failure secondary to pneumonia. 2. Atrial fibrillation with rapid ventricular response - now controlled with diltiazem. 3. Alcohol withdrawal. 4. Chronic lymphocytic leukemia. PLAN: 1. The patient will continue on alcohol withdrawal precautions and the JERI protocol. 2. Continue antibiotics, nebulization treatments, and oxygen. 3. He continues on digoxin and diltiazem for rate control. Hopefully, his Cardizem drip can be turned off. 4. Updated at bedside. Job ID: [id number]
[2018-12-09] MEDS: Gabapentin 100 MG CAP PO SCH ×3 (09:10→21:22)
[2018-12-09] MEDS: Folic Acid 1 MG TAB PO SCH (09:11)
[2018-12-09] MEDS: Spironolactone 25 MG TAB PO SCH (09:11)
[2018-12-09] MEDS: Multivitamin W/ Minerals 1 TAB PO SCH (09:11)
[2018-12-09] MEDS: Magnesium Oxide 400 MG TAB PO SCH (09:11)
[2018-12-09] MEDS: Digoxin 0.125 MG TAB PO SCH (09:11)
[2018-12-09] MEDS: Famotidine 20 MG TAB PO SCH ×2 (09:11→21:22)
[2018-12-09] MEDS: Saccharomyces boulardii 250 MG CAP PO SCH (09:11)
[2018-12-09] MEDS: Thiamine 100 MG TAB PO SCH (09:11)
[2018-12-09] MEDS: Apixaban 5 MG TAB PO SCH ×2 (09:11→21:22)
[2018-12-09] MEDS: methylPREDNISolone Sod Succ 40 MG VIAL IVP SCH ×2 (09:12→21:22)
[2018-12-09] MEDS: Tamsulosin HCl 0.4 MG CAP PO SCH (09:12)
--- NOTE | 2018-12-09 10:30 | PDOC.PN ---
- Subjective Encounter Start Date: 12/09/18 Encounter Start Time: 09:45 Patient seen and examined. No new complaints. No overnight events - Objective Resuscitation Status - Order Detail: 12/05/18 13:39 Resuscitation Status Routine Resuscitation Status: FULL: Full Resuscitation Discussed with: patient SHANTAL Reviewed: Yes Vital Signs & Weight: Vital Signs (12 hours) Temp Pulse Resp Pulse Ox 12/09/18 09:11 96 12/09/18 08:27 96 12/09/18 08:26 93 24 H 96 12/09/18 08:00 94 L 12/09/18 07:07 97.4 F L 12/09/18 04:00 97.8 F 12/09/18 02:06 79 18 95 12/09/18 00:00 97.5 F L Weight Admit Weight 153 lb 14.122 oz Most Recent Monitor Data Heart Rate from ECG 92 NIBP 121/78 NIBP BP-Mean 92 Respiration from ECG 37 SpO2 93 I&O: 12/08/18 12/09/18 12/10/18 06:59 06:59 06:59 Intake Total 2238 1222.5 277.4 Output Total 495 1290 Balance 1743 -67.5 277.4 Result Diagrams: 12/09/18 05:50 12/09/18 05:50 EKG Reviewed by me: Yes Phys Exam - Physical Examination Constitutional: NAD HEENT: PERRLA, moist MMs, sclera anicteric Neck: no JVD, supple Respiratory: no wheezing, no rales, no rhonchi Cardiovascular: no significant murmur, no rub, irregular Gastrointestinal: soft, non-tender, no distention, positive bowel sounds Musculoskeletal: no edema, pulses present Neurological: non-focal, normal sensation Lymphatic: no nodes Psychiatric: normal affect Skin: no rash, normal turgor Dx/Plan (1) Bilateral pneumonia Code(s): J18.9 - PNEUMONIA, UNSPECIFIED ORGANISM Status: Acute (2) Hypokalemia Code(s): E87.6 - HYPOKALEMIA Status: Acute (3) Hyponatremia Code(s): E87.1 - HYPO-OSMOLALITY AND HYPONATREMIA Status: Acute (4) Atrial fibrillation Code(s): I48.91 - UNSPECIFIED ATRIAL FIBRILLATION Status: Chronic Qualifiers: Atrial fibrillation type: chronic Qualified Code(s): I48.2 - Chronic atrial fibrillation Comment: with RVR (5) BPH (benign prostatic hyperplasia) Code(s): N40.0 - BENIGN PROSTATIC HYPERPLASIA WITHOUT LOWER URINRY TRACT SYMP Status: Chronic Qualifiers: Comment: stable, continue Flomax (6) CLL (chronic lymphocytic leukemia) Code(s): C91.90 - LYMPHOID LEUKEMIA, UNSPECIFIED NOT HAVING ACHIEVED REMISSION Status: Chronic (7) Chronic systolic heart failure, ACC/AHA stage C Code(s): I50.22 - CHRONIC SYSTOLIC (CONGESTIVE) HEART FAILURE Status: Chronic (8) Dyslipidemia Code(s): E78.5 - HYPERLIPIDEMIA, UNSPECIFIED Status: Chronic Comment: continue gemfibrozil (9) GERD (gastroesophageal reflux disease) Code(s): K21.9 - GASTRO-ESOPHAGEAL REFLUX DISEASE WITHOUT ESOPHAGITIS Status: Chronic Qualifiers: Comment: continue PPI (10) Macrocytic anemia Code(s): D53.9 - NUTRITIONAL ANEMIA, UNSPECIFIED Status: Chronic (11) Alcohol withdrawal delirium Code(s): F10.231 - ALCOHOL DEPENDENCE WITH WITHDRAWAL DELIRIUM Status: Acute (12) Acute respiratory failure with hypoxia Code(s): J96.01 - ACUTE RESPIRATORY FAILURE WITH HYPOXIA Status: Acute (13) Sepsis with acute organ dysfunction Code(s): A41.9 - SEPSIS, UNSPECIFIED ORGANISM; R65.20 - SEVERE SEPSIS WITHOUT SEPTIC SHOCK Status: Acute - Plan cont current plan of care, plan discussed w/ family, 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 Review of Systems - Review of Systems ENT: negative: Ear Pain, Ear Discharge, Nose Pain, Nose Discharge, Nose Congestion, Mouth Pain, Mouth Swelling, Throat Pain, Throat Swelling, Other Respiratory: negative: Cough, Dry, Shortness of Breath, Hemoptysis, SOB with Excertion, Pleuritic Pain, Sputum, Wheezing Cardiovascular: negative: chest pain, palpitations, orthopnea, paroxysmal nocturnal dyspnea, edema, light headedness, other Gastrointestinal: negative: Nausea, Vomiting, Abdominal Pain, Diarrhea, Constipation, Melena, Hematochezia, Other Genitourinary: negative: Dysuria, Frequency, Incontinence, Hematuria, Retention , Other Musculoskeletal: negative: Neck Pain, Shoulder Pain, Arm Pain, Back Pain, Hand Pain, Leg Pain, Foot Pain, Other - Medications/Allergies Allergies/Adverse Reactions: Allergies Allergy/AdvReac Type Severity Reaction Status Date / Time No Known Drug Allergies Allergy Verified 06/01/18 05:50 Medications: Current Medications Acetaminophen (Tylenol) 500 mg PO Q6H PRN PRN Reason: Mild Pain (1-3) Albuterol/Ipratropium (Duoneb) 3 ml EZPAP [id number] [facility] Last Admin: 12/09/18 08:26 Dose: 3 ml Apixaban (Eliquis) 5 mg PO BID [facility] Last Admin: 12/09/18 09:11 Dose: 5 mg Artificial Tears (Tears Naturale) 2 drop EA EYE PRN PRN PRN Reason: Dry Eyes Bisacodyl (Dulcolax) 10 mg PO DAILYPRN PRN PRN Reason: Constipation Calcium Carbonate (Tums) 1,000 mg PO Q4H PRN PRN Reason: Heartburn or Indigestion Diazepam (Valium) 5 mg PO Q4H PRN PRN Reason: FOR ASE 10 OR GREATER Digoxin (Lanoxin) 0.125 mg PO DAILY [facility] Last Admin: 12/09/18 09:11 Dose: 0.125 mg Diltiazem HCl (Cardizem Cd) 360 mg PO DAILY [facility] Last Admin: 12/09/18 09:10 Dose: 360 mg Famotidine (Pepcid) 20 mg PO BID [facility] Last Admin: 12/09/18 09:11 Dose: 20 mg Folic Acid (Folvite) 1 mg PO DAILY [facility] Last Admin: 12/09/18 09:11 Dose: 1 mg Gabapentin (Neurontin) 200 mg PO TID [facility] Last Admin: 12/09/18 09:10 Dose: 200 mg Guaifenesin (Robitussin Sf) 200 mg PO Q4H PRN PRN Reason: Cough Guaifenesin/Dextromethorphan (Robitussin Dm) 10 ml PO Q6H PRN PRN Reason: Cough Last Admin: 12/06/18 20:12 Dose: 10 ml Hydralazine HCl (Apresoline) 10 mg SLOW IVP Q4H PRN PRN Reason: SBP > 180 and HR < 70 Ascorbic Acid 1,500 mg/ Sodium (Chloride) 53 mls @ 100 mls/hr IVPB Q6HR [facility] Stop: 12/09/18 12:01 Last Admin: 12/09/18 06:37 Dose: 53 mls Levofloxacin 750 mg/ Device 150 mls @ 100 mls/hr IVPB 1200 JESSICA Last Admin: 12/08/18 11:58 Dose: 150 mls Diltiazem HCl 125 mg/ Sodium (Chloride) 125 mls @ 0 mls/hr IVPB INF JESSICA; Protocol Stop: 12/09/18 11:00 Last Admin: 12/09/18 00:18 Dose: 125 mls Potassium Chloride 40 meq/ (Sodium Chloride) 270 mls @ 135 mls/hr IVPB ASDIR PRN PRN Reason: FOR SERUM K+ 2.5 - 3.5 Potassium Chloride 40 meq/ (Device) 100 mls @ 50 mls/hr IVPB ASDIR PRN PRN Reason: FOR SERUM K+ 2.5 - 3.5 Magnesium Sulfate 1 gm/ Sodium (Chloride) 102 mls @ 102 mls/hr IV PRN PRN PRN Reason: MAG LEVEL 1.4 - 2.0 Last Admin: 12/08/18 09:09 Dose: 102 mls Magnesium Sulfate 2 gm/ Device 50 mls @ 50 mls/hr IVPB ASDIR PRN PRN Reason: MAGNESIUM < 1.4 Potassium Phosphate 9 mmol/ (Sodium Chloride) 103 mls @ 25.75 mls/hr IVPB ASDIR PRN PRN Reason: Phosphate 1.0-1.8 Potassium Phosphate 12 mmol/ (Sodium Chloride) 254 mls @ 63.5 mls/hr IV ASDIR PRN PRN Reason: Serum phosphate 0.5-0.9 Potassium Phosphate 15 mmol/ (Sodium Chloride) 255 mls @ 63.75 mls/hr IV ASDIR PRN PRN Reason: Serum Phos < 0.5 Iron/Minerals/Multivitamins (Theragran M) 1 tab PO DAILY [facility] Last Admin: 12/09/18 09:11 Dose: 1 tab Loperamide HCl (Imodium) 2 mg PO PRN PRN PRN Reason: Diarrhea/Loose Stools Loratadine (Claritin) 10 mg PO DAILYPRN PRN PRN Reason: Sinus Symptoms Magnesium Oxide (Magnesium Oxide) 400 mg PO BIDPRN PRN PRN Reason: FOR SERUM MAG 1.4 - 2.0 Magnesium Oxide (Magnesium Oxide) 800 mg PO PRN PRN PRN Reason: FOR SERUM MAG < 1.4 Magnesium Oxide (Magnesium Oxide) 400 mg PO DAILY [facility] Last Admin: 12/09/18 09:11 Dose: 400 mg Methylprednisolone Sodium Succinate (Solu-Medrol) 20 mg IVP Q12HR [facility] Last Admin: 12/09/18 09:12 Dose: 20 mg Mineral Oil/White Petrolatum (Eucerin Cream) 0 gm TOP BIDPRN PRN PRN Reason: Dry Skin Miscellaneous (Ase Protocol) 1 each FS ASDIR JESSICA Miscellaneous Medication (Phos-Nak) 1 pkt PO TIDPRN PRN PRN Reason: FOR PHOS LEVEL 1.0 - 1.8 Miscellaneous Medication (Phos-Nak) 2 pkt PO TIDPRN PRN PRN Reason: FOR PHOS LEVEL 0.5 - 1.0 Nicotine (Nicoderm Patch) 21 mg TD Q24HR [facility] Last Admin: 12/08/18 13:09 Dose: 21 mg Ccu Electrolyte (Replacement Protocol) 0 each FS PRN PRN PRN Reason: FOR ELECTROLYTE REPLACEMENT Ondansetron HCl (Zofran Odt) 4 mg SL Q6H PRN PRN Reason: Nausea/Vomiting Ondansetron HCl (Zofran) 4 mg IVP Q6H PRN PRN Reason: Nausea/Vomiting Potassium Chloride (K-Dur) 40 meq PO ASDIR PRN PRN Reason: FOR SERUM K+ 2.5 - 3.5 Last Admin: 12/08/18 08:57 Dose: 40 meq Potassium Chloride (Klor-Con) 40 meq PER TUBE ASDIR PRN PRN Reason: FOR SERUM K+ 2.5-3.5 Saccharomyces Boulardii (Florastor) 250 mg PO DAILY [facility] Last Admin: 12/09/18 09:11 Dose: 250 mg Sodium Chloride (Flush - Normal Saline) 10 ml IVF Q12HR [facility] Last Admin: 12/09/18 09:12 Dose: 10 ml Sodium Chloride (Flush - Normal Saline) 10 ml IVF PRN PRN PRN Reason: Saline Flush Sodium Chloride ([place] Nasal [place] 0.65%) 0 ml EA NARE QIDPRN PRN PRN Reason: Nasal Congestion Spironolactone (Aldactone) 25 mg PO QAM-[facility] Last Admin: 12/09/18 09:11 Dose: 25 mg Sterile Water (Bacteriostatic Water) 1 ml FS PRN PRN PRN Reason: RECONSTITUTION Last Admin: 12/07/18 17:30 Dose: 1 ml Tamsulosin HCl (Flomax) 0.4 mg PO DAILY [facility] Last Admin: 12/09/18 09:12 Dose: 0.4 mg Thiamine HCl (Thiamine) 100 mg PO DAILY [facility] Last Admin: 12/09/18 09:11 Dose: 100 mg Throat Lozenges (Cepastat Lozenges) 1 conor PO Q2H PRN PRN Reason: Sore Throat
[2018-12-09] MEDS: Nicotine 21 MG PATCH TD SCH (12:54)
[2018-12-09 13:43] VITALS: BMI 25.4
[2018-12-09] MEDS ORDERED: Lorazepam 1 MG TAB PO PRN (20:57)
--- NOTE | 2018-12-10 06:16 | PDOC.CTH ---
Cardiology Progress Note - Objective Vital Signs Temp Pulse Resp Pulse Ox 12/10/18 06:13 94 L 12/10/18 06:11 91 20 94 L 12/10/18 03:50 97.1 F L 12/10/18 02:30 91 13 96 12/09/18 23:40 97.0 F L 12/09/18 22:08 87 21 H 96 12/09/18 20:50 95 12/09/18 19:27 98.0 F 12/09/18 19:15 95 25 H 95 Admit Weight 153 lb 14.122 oz Weight 172 lb 12/08/18 12/09/18 12/10/18 06:59 06:59 06:59 Intake Total 2238 1222.5 2187.0 Output Total 495 1290 1450 Balance 1743 -67.5 737.0 - Labs Result Diagrams: 12/09/18 05:50 12/09/18 05:50 Troponin/CKMB Troponin I Less than 0.010 ng/mL (< 0.028) 12/05/18 09:20 - Assessment/Plan afib Confusion ETOH withdrawal Pneumonia CLL Recs: 12/08 Continue IV CCB and PO for now Consider increasing po CCB tomorrow On Abx Confusion may be multifactorial (ETOH, no sleep for thtree days, pneumonia, etc) On ACT REC: 12/09 DC IV CCB at 11AM Increase PO CCB to 360mg QAM Abx REC: 12/10
[2018-12-10 06:55] LABS: Mean Corpuscular HGB CONC 31.9 g/dL (32.0-36.0); Mean Corpuscular Hemoglobin 36.4 pg (27.0-31.0); Mean Platelet Volume 7.1 fL (7.4-10.4); Platelet Count 234 thou/uL (130-400); RBC Distribution Width 13.9 % (11.5-14.5); Red Blood Cell (RBC) Count 2.73 mill/uL (4.70-6.10)
[2018-12-10 07:19] LABS: Anion Gap 12 mmol/L (10-20); BUN (Urea Nitrogen) 38 mg/dL (8.4-25.7); Calc. Creatinine Clearance 98 mL/min (70-130); Calcium 9.1 mg/dL (7.8-10.44); Carbon Dioxide 27 mmol/L (23-31); Chloride 104 mmol/L (98-107); Estimated GFR-MDRD Greater than 90; Glucose 157 mg/dL (83-110); Potassium 4.3 mmol/L (3.5-5.1); Sodium 139 mmol/L (136-145)
[2018-12-10 08:02] LABS: Lymphocytes 96 % (21-51); MDiff Complete? YES; Macrocytosis MODERATE=16-30 cells (100X) (0-5/hpf); Neutrophil 4 % (42-75); Platelet Morphology Comment Appears Adequate
--- NOTE | 2018-12-10 09:14 | PRG ---
DATE OF SERVICE: 12/10/2018 SUBJECTIVE: Mr. Reeves is doing reasonably well, has no complaints. OBJECTIVE: VITAL SIGNS: His temperature is 97.6, pulse 90, blood pressure 139/84. HEENT: Unremarkable. NECK: No JVD. LUNGS: Fairly clear without wheezing. CARDIAC: S1, S2. Irregularly irregular. ABDOMEN: Soft. EXTREMITIES: No edema. LABORATORY DATA: White blood cell count 46, hematocrit 31.2, and platelet count 234 with 96% lymphocytes. Sodium 139, potassium 4.3, chloride 104, CO2 of 27, BUN 30, creatinine 0.7, glucose 157. ASSESSMENT: 1. Rate control atrial fibrillation. 2. Acute respiratory failure secondary to pneumonia-now better. 3. Alcohol withdrawal, now better. 4. Chronic lymphocytic leukemia. PLAN: 1. He will be converted over to oral antibiotics. 2. He can be transferred out to the medical floor. 3. Consult Physical Therapy. Start ambulating. Job ID: [id number]
[2018-12-10] MEDS: Thiamine 100 MG TAB PO SCH (10:07)
[2018-12-10] MEDS: Gabapentin 100 MG CAP PO SCH ×3 (10:07→22:03)
[2018-12-10] MEDS: Multivitamin W/ Minerals 1 TAB PO SCH (10:07)
[2018-12-10] MEDS: Apixaban 5 MG TAB PO SCH ×2 (10:08→22:03)
[2018-12-10] MEDS: Folic Acid 1 MG TAB PO SCH (10:08)
[2018-12-10] MEDS: Digoxin 0.125 MG TAB PO SCH (10:08)
[2018-12-10] MEDS: Tamsulosin HCl 0.4 MG CAP PO SCH (10:08)
[2018-12-10] MEDS: Famotidine 20 MG TAB PO SCH ×2 (10:08→22:03)
[2018-12-10] MEDS: Magnesium Oxide 400 MG TAB PO SCH (10:08)
[2018-12-10] MEDS: Saccharomyces boulardii 250 MG CAP PO SCH (10:08)
[2018-12-10] MEDS: Spironolactone 25 MG TAB PO SCH (10:09)
[2018-12-10] MEDS: methylPREDNISolone Sod Succ 40 MG VIAL IVP SCH (10:09)
--- NOTE | 2018-12-10 10:41 | PDOC.PN ---
- Subjective Encounter Start Date: 12/10/18 Encounter Start Time: 09:50 Patient seen and examined. No new complaints. No overnight events - Objective Resuscitation Status - Order Detail: 12/05/18 13:39 Resuscitation Status Routine Resuscitation Status: FULL: Full Resuscitation Discussed with: patient SHANTAL Reviewed: Yes Vital Signs & Weight: Vital Signs (12 hours) Temp Pulse Resp Pulse Ox 12/10/18 10:08 91 12/10/18 08:00 94 L 12/10/18 07:04 97.6 F 12/10/18 06:13 94 L 12/10/18 06:11 91 20 94 L 12/10/18 03:50 97.1 F L 12/10/18 02:30 91 13 96 12/09/18 23:40 97.0 F L Weight Admit Weight 153 lb 14.122 oz Weight 172 lb Most Recent Monitor Data Heart Rate from ECG 90 NIBP 139/84 NIBP BP-Mean 102 Respiration from ECG 23 SpO2 93 I&O: 12/09/18 12/10/18 12/11/18 06:59 06:59 06:59 Intake Total 1222.5 2187.0 Output Total 1290 1450 Balance -67.5 737.0 Result Diagrams: 12/10/18 05:45 12/10/18 05:45 EKG Reviewed by me: Yes Phys Exam - Physical Examination Constitutional: NAD HEENT: PERRLA, moist MMs, sclera anicteric Neck: no JVD, supple Respiratory: no wheezing, no rales, no rhonchi Cardiovascular: no significant murmur, irregular Gastrointestinal: soft, non-tender, no distention, positive bowel sounds Musculoskeletal: no edema, pulses present Neurological: non-focal, normal sensation Lymphatic: no nodes Psychiatric: normal affect Skin: no rash, normal turgor Dx/Plan (1) Bilateral pneumonia Code(s): J18.9 - PNEUMONIA, UNSPECIFIED ORGANISM Status: Acute (2) Hypokalemia Code(s): E87.6 - HYPOKALEMIA Status: Acute (3) Hyponatremia Code(s): E87.1 - HYPO-OSMOLALITY AND HYPONATREMIA Status: Acute (4) Atrial fibrillation Code(s): I48.91 - UNSPECIFIED ATRIAL FIBRILLATION Status: Chronic Qualifiers: Atrial fibrillation type: chronic Qualified Code(s): I48.2 - Chronic atrial fibrillation Comment: with RVR (5) BPH (benign prostatic hyperplasia) Code(s): N40.0 - BENIGN PROSTATIC HYPERPLASIA WITHOUT LOWER URINRY TRACT SYMP Status: Chronic Qualifiers: Comment: stable, continue Flomax (6) CLL (chronic lymphocytic leukemia) Code(s): C91.90 - LYMPHOID LEUKEMIA, UNSPECIFIED NOT HAVING ACHIEVED REMISSION Status: Chronic (7) Chronic systolic heart failure, ACC/AHA stage C Code(s): I50.22 - CHRONIC SYSTOLIC (CONGESTIVE) HEART FAILURE Status: Chronic (8) Dyslipidemia Code(s): E78.5 - HYPERLIPIDEMIA, UNSPECIFIED Status: Chronic Comment: continue gemfibrozil (9) GERD (gastroesophageal reflux disease) Code(s): K21.9 - GASTRO-ESOPHAGEAL REFLUX DISEASE WITHOUT ESOPHAGITIS Status: Chronic Qualifiers: Comment: continue PPI (10) Macrocytic anemia Code(s): D53.9 - NUTRITIONAL ANEMIA, UNSPECIFIED Status: Chronic (11) Alcohol withdrawal delirium Code(s): F10.231 - ALCOHOL DEPENDENCE WITH WITHDRAWAL DELIRIUM Status: Acute (12) Acute respiratory failure with hypoxia Code(s): J96.01 - ACUTE RESPIRATORY FAILURE WITH HYPOXIA Status: Acute (13) Sepsis with acute organ dysfunction Code(s): A41.9 - SEPSIS, UNSPECIFIED ORGANISM; R65.20 - SEVERE SEPSIS WITHOUT SEPTIC SHOCK Status: Acute - Plan cont current plan of care, 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 Review of Systems - Review of Systems ENT: negative: Ear Pain, Ear Discharge, Nose Pain, Nose Discharge, Nose Congestion, Mouth Pain, Mouth Swelling, Throat Pain, Throat Swelling, Other Respiratory: negative: Cough, Dry, Shortness of Breath, Hemoptysis, SOB with Excertion, Pleuritic Pain, Sputum, Wheezing Cardiovascular: negative: chest pain, palpitations, orthopnea, paroxysmal nocturnal dyspnea, edema, light headedness, other Gastrointestinal: negative: Nausea, Vomiting, Abdominal Pain, Diarrhea, Constipation, Melena, Hematochezia, Other Genitourinary: negative: Dysuria, Frequency, Incontinence, Hematuria, Retention , Other Musculoskeletal: negative: Neck Pain, Shoulder Pain, Arm Pain, Back Pain, Hand Pain, Leg Pain, Foot Pain, Other - Medications/Allergies Allergies/Adverse Reactions: Allergies Allergy/AdvReac Type Severity Reaction Status Date / Time No Known Drug Allergies Allergy Verified 06/01/18 05:50 Medications: Current Medications Acetaminophen (Tylenol) 500 mg PO Q6H PRN PRN Reason: Mild Pain (1-3) Albuterol/Ipratropium (Duoneb) 3 ml EZPAP [id number] [facility] Last Admin: 12/10/18 06:11 Dose: 3 ml Apixaban (Eliquis) 5 mg PO BID [facility] Last Admin: 12/10/18 10:08 Dose: 5 mg Artificial Tears (Tears Naturale) 2 drop EA EYE PRN PRN PRN Reason: Dry Eyes Bisacodyl (Dulcolax) 10 mg PO DAILYPRN PRN PRN Reason: Constipation Calcium Carbonate (Tums) 1,000 mg PO Q4H PRN PRN Reason: Heartburn or Indigestion Diazepam (Valium) 5 mg PO Q4H PRN PRN Reason: FOR ASE 10 OR GREATER Digoxin (Lanoxin) 0.125 mg PO DAILY [facility] Last Admin: 12/10/18 10:08 Dose: 0.125 mg Diltiazem HCl (Cardizem Cd) 360 mg PO DAILY [facility] Last Admin: 12/10/18 10:09 Dose: 360 mg Famotidine (Pepcid) 20 mg PO BID [facility] Last Admin: 12/10/18 10:08 Dose: 20 mg Folic Acid (Folvite) 1 mg PO DAILY [facility] Last Admin: 12/10/18 10:08 Dose: 1 mg Gabapentin (Neurontin) 200 mg PO TID [facility] Last Admin: 12/10/18 10:07 Dose: 200 mg Guaifenesin (Robitussin Sf) 200 mg PO Q4H PRN PRN Reason: Cough Guaifenesin/Dextromethorphan (Robitussin Dm) 10 ml PO Q6H PRN PRN Reason: Cough Last Admin: 12/06/18 20:12 Dose: 10 ml Hydralazine HCl (Apresoline) 10 mg SLOW IVP Q4H PRN PRN Reason: SBP > 180 and HR < 70 Levofloxacin 750 mg/ Device 150 mls @ 100 mls/hr IVPB 1200 [facility] Last Admin: 12/09/18 12:54 Dose: 150 mls Potassium Chloride 40 meq/ (Sodium Chloride) 270 mls @ 135 mls/hr IVPB ASDIR PRN PRN Reason: FOR SERUM K+ 2.5 - 3.5 Potassium Chloride 40 meq/ (Device) 100 mls @ 50 mls/hr IVPB ASDIR PRN PRN Reason: FOR SERUM K+ 2.5 - 3.5 Magnesium Sulfate 1 gm/ Sodium (Chloride) 102 mls @ 102 mls/hr IV PRN PRN PRN Reason: MAG LEVEL 1.4 - 2.0 Last Admin: 12/08/18 09:09 Dose: 102 mls Magnesium Sulfate 2 gm/ Device 50 mls @ 50 mls/hr IVPB ASDIR PRN PRN Reason: MAGNESIUM < 1.4 Potassium Phosphate 9 mmol/ (Sodium Chloride) 103 mls @ 25.75 mls/hr IVPB ASDIR PRN PRN Reason: Phosphate 1.0-1.8 Potassium Phosphate 12 mmol/ (Sodium Chloride) 254 mls @ 63.5 mls/hr IV ASDIR PRN PRN Reason: Serum phosphate 0.5-0.9 Potassium Phosphate 15 mmol/ (Sodium Chloride) 255 mls @ 63.75 mls/hr IV ASDIR PRN PRN Reason: Serum Phos < 0.5 Iron/Minerals/Multivitamins (Theragran M) 1 tab PO DAILY [facility] Last Admin: 12/10/18 10:07 Dose: 1 tab Loperamide HCl (Imodium) 2 mg PO PRN PRN PRN Reason: Diarrhea/Loose Stools Loratadine (Claritin) 10 mg PO DAILYPRN PRN PRN Reason: Sinus Symptoms Lorazepam (Ativan) 2 mg PO Q4H PRN PRN Reason: Agitation Last Admin: 12/09/18 21:22 Dose: 2 mg Magnesium Oxide (Magnesium Oxide) 400 mg PO BIDPRN PRN PRN Reason: FOR SERUM MAG 1.4 - 2.0 Magnesium Oxide (Magnesium Oxide) 800 mg PO PRN PRN PRN Reason: FOR SERUM MAG < 1.4 Magnesium Oxide (Magnesium Oxide) 400 mg PO DAILY [facility] Last Admin: 12/10/18 10:08 Dose: 400 mg Methylprednisolone Sodium Succinate (Solu-Medrol) 20 mg IVP Q12HR [facility] Last Admin: 12/10/18 10:09 Dose: 20 mg Mineral Oil/White Petrolatum (Eucerin Cream) 0 gm TOP BIDPRN PRN PRN Reason: Dry Skin Miscellaneous (Ase Protocol) 1 each FS ASDIR JESSICA Miscellaneous Medication (Phos-Nak) 1 pkt PO TIDPRN PRN PRN Reason: FOR PHOS LEVEL 1.0 - 1.8 Miscellaneous Medication (Phos-Nak) 2 pkt PO TIDPRN PRN PRN Reason: FOR PHOS LEVEL 0.5 - 1.0 Nicotine (Nicoderm Patch) 21 mg TD Q24HR [facility] Last Admin: 12/09/18 12:54 Dose: 21 mg Ccu Electrolyte (Replacement Protocol) 0 each FS PRN PRN PRN Reason: FOR ELECTROLYTE REPLACEMENT Ondansetron HCl (Zofran Odt) 4 mg SL Q6H PRN PRN Reason: Nausea/Vomiting Ondansetron HCl (Zofran) 4 mg IVP Q6H PRN PRN Reason: Nausea/Vomiting Potassium Chloride (K-Dur) 40 meq PO ASDIR PRN PRN Reason: FOR SERUM K+ 2.5 - 3.5 Last Admin: 12/08/18 08:57 Dose: 40 meq Potassium Chloride (Klor-Con) 40 meq PER TUBE ASDIR PRN PRN Reason: FOR SERUM K+ 2.5-3.5 Saccharomyces Boulardii (Florastor) 250 mg PO DAILY [facility] Last Admin: 12/10/18 10:08 Dose: 250 mg Sodium Chloride (Flush - Normal Saline) 10 ml IVF Q12HR [facility] Last Admin: 12/10/18 10:09 Dose: 10 ml Sodium Chloride (Flush - Normal Saline) 10 ml IVF PRN PRN PRN Reason: Saline Flush Sodium Chloride ([place] Nasal [place] 0.65%) 0 ml EA NARE QIDPRN PRN PRN Reason: Nasal Congestion Spironolactone (Aldactone) 25 mg PO QAM-WM [facility] Last Admin: 12/10/18 10:09 Dose: 25 mg Sterile Water (Bacteriostatic Water) 1 ml FS PRN PRN PRN Reason: RECONSTITUTION Last Admin: 12/07/18 17:30 Dose: 1 ml Tamsulosin HCl (Flomax) 0.4 mg PO DAILY [facility] Last Admin: 12/10/18 10:08 Dose: 0.4 mg Thiamine HCl (Thiamine) 100 mg PO DAILY [facility] Last Admin: 12/10/18 10:07 Dose: 100 mg Throat Lozenges (Cepastat Lozenges) 1 conor PO Q2H PRN PRN Reason: Sore Throat
[2018-12-10] MEDS: Nicotine 21 MG PATCH TD SCH (13:20)
[2018-12-11 06:45] LABS: White Blood Cell (WBC) Count 49.9 thou/uL (4.8-10.8)
[2018-12-11 06:54] LABS: Anion Gap 12 mmol/L (10-20); BUN (Urea Nitrogen) 31 mg/dL (8.4-25.7); Calc. Creatinine Clearance 101 mL/min (70-130); Calcium 8.9 mg/dL (7.8-10.44); Carbon Dioxide 27 mmol/L (23-31); Chloride 104 mmol/L (98-107); Estimated GFR-MDRD Greater than 90; Glucose 135 mg/dL (83-110); Potassium 4.2 mmol/L (3.5-5.1); Sodium 139 mmol/L (136-145)
[2018-12-11 07:37] LABS: Band 2 % (5-11); Hemoglobin 10.6 g/dL (14.0-18.0); Lymphocytes 95 % (21-51); MDiff Complete? YES; Macrocytosis MODERATE=16-30 cells (100X) (0-5/hpf); Mean Corpuscular HGB CONC 31.9 g/dL (32.0-36.0); Mean Corpuscular Hemoglobin 36.6 pg (27.0-31.0); Mean Platelet Volume 6.9 fL (7.4-10.4); Neutrophil 3 % (42-75); Platelet Count 246 thou/uL (130-400); RBC Distribution Width 13.7 % (11.5-14.5); Red Blood Cell (RBC) Count 2.91 mill/uL (4.70-6.10)
[2018-12-11] MEDS: Apixaban 5 MG TAB PO SCH (08:49)
[2018-12-11] MEDS: Gabapentin 100 MG CAP PO SCH ×2 (08:50→15:57)
[2018-12-11] MEDS: Thiamine 100 MG TAB PO SCH (08:50)
[2018-12-11] MEDS: Digoxin 0.125 MG TAB PO SCH (08:51)
[2018-12-11] MEDS: Saccharomyces boulardii 250 MG CAP PO SCH (08:51)
[2018-12-11] MEDS: Folic Acid 1 MG TAB PO SCH (08:51)
[2018-12-11] MEDS: Famotidine 20 MG TAB PO SCH (08:51)
[2018-12-11] MEDS: Tamsulosin HCl 0.4 MG CAP PO SCH (08:51)
[2018-12-11] MEDS: Spironolactone 25 MG TAB PO SCH (08:51)
[2018-12-11] MEDS: Multivitamin W/ Minerals 1 TAB PO SCH (08:51)
[2018-12-11] MEDS ORDERED: predniSONE 20 MG TAB PO SCH (09:00)
--- NOTE | 2018-12-11 10:01 | PDOC.PN ---
- Subjective Encounter Start Date: 12/11/18 Encounter Start Time: 07:40 Patient seen and examined. No new complaints. No overnight events he does not want to go to rehab - Objective Resuscitation Status - Order Detail: 12/05/18 13:39 Resuscitation Status Routine Resuscitation Status: FULL: Full Resuscitation Discussed with: patient SHANTAL Reviewed: Yes Vital Signs & Weight: Vital Signs (12 hours) Temp Pulse Resp BP BP Pulse Ox 12/11/18 09:37 98.0 F 108 H 24 H 134/74 93 L 12/11/18 08:51 93 12/11/18 06:17 92 20 96 12/11/18 04:00 152/90 H 12/11/18 03:04 98.2 F 85 12 152/90 H 92 L 12/11/18 02:14 89 18 94 L 12/11/18 00:00 98.3 F 87 12 146/86 H 146/86 H 93 L 12/10/18 22:24 102 H 24 H 93 L Weight Admit Weight 153 lb 14.122 oz Weight 172 lb Most Recent Monitor Data Heart Rate from ECG 83 NIBP 137/69 NIBP BP-Mean 91 Respiration from ECG 20 SpO2 91 I&O: 12/10/18 12/11/18 12/12/18 06:59 06:59 06:59 Intake Total 2187.0 600 Output Total 1450 650 Balance 737.0 -50 Result Diagrams: 12/11/18 06:22 12/11/18 06:22 Phys Exam - Physical Examination Constitutional: NAD HEENT: PERRLA, moist MMs, sclera anicteric Neck: no JVD, supple Respiratory: no wheezing, no rales, no rhonchi Cardiovascular: RRR, no significant murmur Gastrointestinal: soft, non-tender, no distention, positive bowel sounds Musculoskeletal: no edema, pulses present Neurological: non-focal, normal sensation Lymphatic: no nodes Psychiatric: normal affect, A&O x 3 Skin: no rash, normal turgor Dx/Plan (1) Bilateral pneumonia Code(s): J18.9 - PNEUMONIA, UNSPECIFIED ORGANISM Status: Acute (2) Hypokalemia Code(s): E87.6 - HYPOKALEMIA Status: Acute (3) Hyponatremia Code(s): E87.1 - HYPO-OSMOLALITY AND HYPONATREMIA Status: Acute (4) Atrial fibrillation Code(s): I48.91 - UNSPECIFIED ATRIAL FIBRILLATION Status: Chronic Qualifiers: Atrial fibrillation type: chronic Qualified Code(s): I48.2 - Chronic atrial fibrillation Comment: with RVR (5) BPH (benign prostatic hyperplasia) Code(s): N40.0 - BENIGN PROSTATIC HYPERPLASIA WITHOUT LOWER URINRY TRACT SYMP Status: Chronic Qualifiers: Comment: stable, continue Flomax (6) CLL (chronic lymphocytic leukemia) Code(s): C91.90 - LYMPHOID LEUKEMIA, UNSPECIFIED NOT HAVING ACHIEVED REMISSION Status: Chronic (7) Chronic systolic heart failure, ACC/AHA stage C Code(s): I50.22 - CHRONIC SYSTOLIC (CONGESTIVE) HEART FAILURE Status: Chronic (8) Dyslipidemia Code(s): E78.5 - HYPERLIPIDEMIA, UNSPECIFIED Status: Chronic Comment: continue gemfibrozil (9) GERD (gastroesophageal reflux disease) Code(s): K21.9 - GASTRO-ESOPHAGEAL REFLUX DISEASE WITHOUT ESOPHAGITIS Status: Chronic Qualifiers: Comment: continue PPI (10) Macrocytic anemia Code(s): D53.9 - NUTRITIONAL ANEMIA, UNSPECIFIED Status: Chronic (11) Alcohol withdrawal delirium Code(s): F10.231 - ALCOHOL DEPENDENCE WITH WITHDRAWAL DELIRIUM Status: Acute (12) Acute respiratory failure with hypoxia Code(s): J96.01 - ACUTE RESPIRATORY FAILURE WITH HYPOXIA Status: Acute (13) Sepsis with acute organ dysfunction Code(s): A41.9 - SEPSIS, UNSPECIFIED ORGANISM; R65.20 - SEVERE SEPSIS WITHOUT SEPTIC SHOCK Status: Acute - Plan cont current plan of care, plan discussed w/ family, continue antibiotics, PT/OT , respiratory therapy * he still on oxygen, will check on room air after ambulation to see if he can go home without oxygen, he does not have qualifying diagnosis to arrange oxygen * continue current medical treatment * symptomatic treatment * consult oncology for worsening wbc count. Review of Systems - Review of Systems ENT: negative: Ear Pain, Ear Discharge, Nose Pain, Nose Discharge, Nose Congestion, Mouth Pain, Mouth Swelling, Throat Pain, Throat Swelling, Other Respiratory: negative: Cough, Dry, Shortness of Breath, Hemoptysis, SOB with Excertion, Pleuritic Pain, Sputum, Wheezing Cardiovascular: negative: chest pain, palpitations, orthopnea, paroxysmal nocturnal dyspnea, edema, light headedness, other Gastrointestinal: negative: Nausea, Vomiting, Abdominal Pain, Diarrhea, Constipation, Melena, Hematochezia, Other Genitourinary: negative: Dysuria, Frequency, Incontinence, Hematuria, Retention , Other Musculoskeletal: negative: Neck Pain, Shoulder Pain, Arm Pain, Back Pain, Hand Pain, Leg Pain, Foot Pain, Other - Medications/Allergies Allergies/Adverse Reactions: Allergies Allergy/AdvReac Type Severity Reaction Status Date / Time No Known Drug Allergies Allergy Verified 06/01/18 05:50 Medications: Current Medications Acetaminophen (Tylenol) 500 mg PO Q6H PRN PRN Reason: Mild Pain (1-3) Albuterol/Ipratropium (Duoneb) 3 ml EZPAP [id number] [facility] Last Admin: 12/11/18 06:17 Dose: 3 ml Apixaban (Eliquis) 5 mg PO BID [facility] Last Admin: 12/11/18 08:49 Dose: 5 mg Artificial Tears (Tears Naturale) 2 drop EA EYE PRN PRN PRN Reason: Dry Eyes Bisacodyl (Dulcolax) 10 mg PO DAILYPRN PRN PRN Reason: Constipation Calcium Carbonate (Tums) 1,000 mg PO Q4H PRN PRN Reason: Heartburn or Indigestion Diazepam (Valium) 5 mg PO Q4H PRN PRN Reason: FOR ASE 10 OR GREATER Digoxin (Lanoxin) 0.125 mg PO DAILY [facility] Last Admin: 12/11/18 08:51 Dose: 0.125 mg Diltiazem HCl (Cardizem Cd) 360 mg PO DAILY [facility] Last Admin: 12/11/18 08:48 Dose: 360 mg Famotidine (Pepcid) 20 mg PO BID [facility] Last Admin: 12/11/18 08:51 Dose: 20 mg Folic Acid (Folvite) 1 mg PO DAILY [facility] Last Admin: 12/11/18 08:51 Dose: 1 mg Gabapentin (Neurontin) 200 mg PO TID [facility] Last Admin: 12/11/18 08:50 Dose: 200 mg Guaifenesin (Robitussin Sf) 200 mg PO Q4H PRN PRN Reason: Cough Guaifenesin/Dextromethorphan (Robitussin Dm) 10 ml PO Q6H PRN PRN Reason: Cough Last Admin: 12/06/18 20:12 Dose: 10 ml Hydralazine HCl (Apresoline) 10 mg SLOW IVP Q4H PRN PRN Reason: SBP > 180 and HR < 70 Magnesium Sulfate 1 gm/ Sodium (Chloride) 102 mls @ 102 mls/hr IV PRN PRN PRN Reason: MAG LEVEL 1.4 - 2.0 Last Admin: 12/08/18 09:09 Dose: 102 mls Magnesium Sulfate 2 gm/ Device 50 mls @ 50 mls/hr IVPB ASDIR PRN PRN Reason: MAGNESIUM < 1.4 Iron/Minerals/Multivitamins (Theragran M) 1 tab PO DAILY [facility] Last Admin: 12/11/18 08:51 Dose: 1 tab Levofloxacin (Levaquin) 750 mg PO 0600 [facility] Last Admin: 12/11/18 06:15 Dose: 750 mg Loratadine (Claritin) 10 mg PO DAILYPRN PRN PRN Reason: Sinus Symptoms Lorazepam (Ativan) 2 mg PO Q4H PRN PRN Reason: Agitation Last Admin: 12/09/18 21:22 Dose: 2 mg Mineral Oil/White Petrolatum (Eucerin Cream) 0 gm TOP BIDPRN PRN PRN Reason: Dry Skin Miscellaneous (Ase Protocol) 1 each FS ASDIR [facility] Nicotine (Nicoderm Patch) 21 mg TD Q24HR [facility] Last Admin: 12/10/18 13:20 Dose: 21 mg Ccu Electrolyte (Replacement Protocol) 0 each FS PRN PRN PRN Reason: FOR ELECTROLYTE REPLACEMENT Prednisone (Prednisone) 40 mg PO DAILY [facility] Last Admin: 12/11/18 08:51 Dose: 40 mg Saccharomyces Boulardii (Florastor) 250 mg PO DAILY [facility] Last Admin: 12/11/18 08:51 Dose: 250 mg Sodium Chloride ([place] Nasal [place] 0.65%) 0 ml EA NARE QIDPRN PRN PRN Reason: Nasal Congestion Spironolactone (Aldactone) 25 mg PO QAM[facility] Last Admin: 12/11/18 08:51 Dose: 25 mg Sterile Water (Bacteriostatic Water) 1 ml FS PRN PRN PRN Reason: RECONSTITUTION Last Admin: 12/07/18 17:30 Dose: 1 ml Tamsulosin HCl (Flomax) 0.4 mg PO DAILY [facility] Last Admin: 12/11/18 08:51 Dose: 0.4 mg Thiamine HCl (Thiamine) 100 mg PO DAILY [facility] Last Admin: 12/11/18 08:50 Dose: 100 mg Throat Lozenges (Cepastat Lozenges) 1 conor PO Q2H PRN PRN Reason: Sore Throat
[2018-12-11 13:36] VITALS: BP 147/74; TEMP 97.7
--- NOTE | 2018-12-11 15:56 | PRG ---
DATE OF SERVICE: 12/11/2018 SERVICE: Pulmonary Medicine. INTERVAL HISTORY: The patient is actually doing really well from respiratory standpoint. His cough has improved. He denies any current fevers, chills, shortness of breath, nausea, or vomiting. He remains on 3 L nasal cannula. We are yet to test him off it. He has been able to get up and walk around the room without difficulty. PHYSICAL EXAMINATION: VITAL SIGNS: Afebrile, pulse 101, blood pressure 147/74, respirations 20, saturation 94% on 3 L nasal cannula. GENERAL: The patient is awake and alert, in no apparent distress. LUNGS: Crackles are present in the right lung base. There is no prolonged expiratory phase or wheezing present. HEART: Normal rate, regular. ABDOMEN: Soft, nontender, and nondistended. Bowel sounds are positive. MUSCULOSKELETAL: No cyanosis or clubbing. There is no pitting in the bilateral lower extremities. NEUROLOGIC: Grossly nonfocal. LABORATORY DATA: WBC remains elevated at 50,000. There was no significant neutrophilia/pyuria. He has predominant lymphocytes present. Creatinine 0.69. Basic metabolic profile is otherwise unremarkable/stable. 1 out of 2 blood cultures is growing coag-negative Staphylococcus. Urine culture is negative to date. ASSESSMENT: 1. Acute hypoxic respiratory failure. 2. Community-acquired pneumonia, much improved. 3. Alcohol abuse with withdrawal features, resolved. 4. Atrial fibrillation, rate controlled. 5. Chronic lymphocytic leukemia. DISCUSSION AND PLAN: We will do home O2 evaluation. If he requires oxygen, this will need to be set up in the outpatient setting, temporarily. He will need to complete a 7-day course of antibiotic. He needs repeat chest x-ray in 4 to 6 weeks in the outpatient setting to verify the infiltrates have resolved. If they have not, additional investigation may be warranted. Job ID: [id number]
[2018-12-11] MEDS: Nicotine 21 MG PATCH TD SCH (15:58)
--- NOTE | 2018-12-11 22:29 | CON ---
DATE OF CONSULTATION: HISTORY OF PRESENT ILLNESS: Mr. Javan Reeves is a 78-year-old male who recently was admitted to the hospital with pneumonia as well as atrial fibrillation. He has chronic lymphocytic leukemia and his white blood cell count has escalated on this admission and that is the reason for the consult. 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 He has never had any treatment for it and states he was told in the past that his white blood cell count would need to be over 50,000 before he would ever need any treatment. Over the years it has gotten as high as 48,000, but then gone down to 28,000 and he is not concerned about it. He has never had lymphadenopathy or splenomegaly or early satiety that he knows of. He feels like he has recovered from the pneumonia and doing better. He denies any recurrent infections and this is his first hospitalization for an infection in many many years. PAST MEDICAL HISTORY: 1. Chronic lymphocytic leukemia since late , likely CAMEJO stage 0, he has never required any treatment for this. 2. Atrial fibrillation. 3. COPD. 4. Hypertension. 5. Gastroesophageal reflux disease. 6. Hyperlipidemia. 7. Osteoarthritis. CURRENT MEDICATIONS: 1. Tylenol 500 mg p.o. q.6 hours p.r.n. 2. DuoNebs p.r.n. 3. Eliquis 5 mg p.o. b.i.d. 4. Dulcolax 10 mg p.o. daily. 5. Tums p.r.n. 6. Valium 5 mg p.o. q.4 hours p.r.n. 7. Digoxin 0.125 mg p.o. daily. 8. Diltiazem 360 mg p.o. daily. 9. Pepcid 20 mg p.o. b.i.d. 10. Folic acid 1 mg p.o. daily. 11. Gabapentin 200 mg p.o. t.i.d. 12. Guaifenesin 200 mg p.o. q.4 hours p.r.n. 13. Robitussin p.r.n. 14. Hydralazine p.r.n. 15. Levofloxacin 750 mg p.o. daily. 16. Claritin 10 mg p.o. daily. 17. Ativan 2 mg q.4 hours p.r.n. 18. Mineral oil p.r.n. 19. Prednisone 40 mg p.o. daily. 20. Florastor 250 mg p.o. daily. 21. Spironolactone 25 mg p.o. daily. 22. Tamsulosin 0.4 mg p.o. daily. 23. Thiamine 100 mg p.o. daily. 24. Throat lozenges p.r.n. ALLERGIES: NO KNOWN DRUG ALLERGIES. SOCIAL HISTORY: He and his recently relocated back in [place]. They have lived in [place] most of their life, but the last several years had been in [place]. 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 Does admit to tobacco use and a history of alcohol use. FAMILY HISTORY: Negative for hematologic malignancies. REVIEW OF SYSTEMS: He is short of breath and coughing, but states overall this has improved. Otherwise, his 10-point review of systems is negative. PHYSICAL EXAMINATION: VITAL SIGNS: Temperature 97.7, pulse 101, respirations 20 to 24, 02 sat 94% on 3 liters nasal cannula, blood pressure 147/74. GENERAL: He is somewhat elderly appearing, in no acute distress. HEENT: Extraocular muscles are intact. Pupils are equal and reactive to light. He has no oral cavity lesions. NECK: Supple, no lymphadenopathy noted. CARDIOVASCULAR: Irregularly irregular rhythm. No murmurs. LUNGS: Clear to auscultation with some mild rales in the bases bilaterally. ABDOMEN: Hyperactive bowel sounds. Soft, nontender, nondistended. EXTREMITIES: No edema. LABORATORY DATA: White blood cell count on admission 27.5, is up to 49,000 on the day of the consult. Hemoglobin is 10.6, platelets 246. His electrolytes were normal including creatinine of 0.6. ASSESSMENT: Mr. Reeves is a 78-year-old male with: Chronic lymphocytic leukemia, never requiring treatment. Progressive leukocytosis secondary to steroids and possibly pneumonia. PLAN: 1. Continue supportive measures for pneumonia and atrial fibrillation. 2. He does not need any treatment for the chronic lymphocytic leukemia at this time, the new number of lymphocytes is not the driving factor for treatment options regardless. He would need to have symptoms or other signs that were necessary for treatment. I would recommend that he follow up with us as an outpatient and we will establish him in our clinic. 3. Continue antibiotics. 4. Continue prednisone taper. Job ID: [id number]
--- NOTE | 2018-12-12 10:38 | DIS ---
DATE OF ADMISSION: 12/05/2018 DATE OF DISCHARGE: 12/11/2018 PRIMARY CARE PHYSICIAN: [facility] Call Admission. DISCHARGE DISPOSITION: Home. PRIMARY DISCHARGE DIAGNOSES: Acute respiratory failure with hypoxia, improved; acute alcohol withdrawal delirium, improved; bibasilar pneumonia; hypokalemia; hyponatremia; sepsis with acute organ dysfunction; atrial fibrillation with rapid ventricular response. SECONDARY DISCHARGE DIAGNOSES: Macrocytic anemia, gastroesophageal reflux disease, dyslipidemia, CLL, chronic diastolic congestive heart failure stage C, benign enlargement of prostate, and atrial fibrillation. PRIMARY PROCEDURE/OPERATION: None. RADIOLOGICAL INVESTIGATION: Chest x-ray, echocardiography. SIGNIFICANT LABORATORY DATA: Hemoglobin 10.6, creatinine 0.69. Urinalysis normal. Blood culture negative. Urine culture negative. DISCHARGE MEDICATIONS: 1. Eliquis 5 mg p.o. b.i.d. 2. Cardizem CD 360 mg p.o. daily. 3. Gabapentin 200 mg p.o. b.i.d. 4. Lopid 600 mg p.o. b.i.d. 5. Levofloxacin 750 mg p.o. daily. 6. Nortriptyline 10 mg p.o. at bedtime. 7. Omeprazole 20 mg p.o. b.i.d. 8. Flomax 0.4 mg p.o. daily. CONTRAINDICATION: None. CODE STATUS: Full code. INPATIENT CONSULTANTS: Dr. Price, Dr. Olson. TEST RESULT PENDING ON DISCHARGE: None. ALLERGIES: NO KNOWN DRUG ALLERGIES. DISCHARGE PLAN: Posthospital, the patient will follow up with heart failure clinic, Dr. Price and primary care physician. HOSPITAL COURSE: A 78-year-old male, who was admitted by Dr. Friedman. Please see his H and P for further details. The patient was having bilateral pneumonia, and at the same time, he was having sepsis with acute organ dysfunction. He was having acute respiratory failure with hypoxia. He had acute atrial fibrillation with rapid ventricular response, which was treated with Cardizem drip and subsequently home medication was controlling his heart rate. While in hospital, he also had alcohol withdrawal delirium that was also improved with treatment. We consulted an Oncology for persistent leukocytosis that was related with CLL, and Oncology recommended outpatient followup. Pulmonary and Critical Care group was following while in hospital. The patient was on room air by the time of discharge, his heart rate was under control. He was transferred to medical floor. While in hospital initially, he was given Rocephin and levofloxacin. On discharge, we changed to p.o. levofloxacin for another 7 days. During this admission, Cardiology started digoxin, which was also sent to his pharmacy and Aldactone was added, that was also sent to his pharmacy. The patient did well while in hospital and he was stable for discharge. All new medication prescription sent to his pharmacy. Please see my progress note from today for further detail. Job ID: [id number]
== END 2018-12-11 17:59 | disposition home or self-care (01) | DRG 871 ==
LOC: ERS 09:01 → CCU 11:54 → IMCU/EMU 12-07 11:15 → T4-B 12-10 15:34
PROVIDERS: ADMIT Internal Medicine; ATTEND Internal Medicine
DX: A41.9 Sepsis, unspecified organism (principal); J96.01 Acute respiratory failure with hypoxia; J18.9 Pneumonia, unspecified organism; F10.231 Alcohol dependence with withdrawal delirium; E87.1 Hypo-osmolality and hyponatremia; C91.10 Chronic lymphocytic leukemia of B-cell type not having achieved remission; I50.32 Chronic diastolic (congestive) heart failure; R65.20 Severe sepsis without septic shock; E87.6 Hypokalemia; D53.9 Nutritional anemia, unspecified; K21.9 Gastro-esophageal reflux disease without esophagitis; E78.5 Hyperlipidemia, unspecified; I11.0 Hypertensive heart disease with heart failure; N40.0 Benign prostatic hyperplasia without lower urinary tract symptoms; J44.9 Chronic obstructive pulmonary disease, unspecified; M19.90 Unspecified osteoarthritis, unspecified site; F17.210 Nicotine dependence, cigarettes, uncomplicated; I48.2 Chronic atrial fibrillation; Z79.899 Other long term (current) drug therapy; Z79.01 Long term (current) use of anticoagulants
CPT/HCPCS: 36415; 71045; 80048; 80053; 80162; 80202; 81003; 81015; 82805; 83605; 83735; 83880; 84100; 84484; 85025; 85060; 87040; 87086; 87149; 87804; 93005; 93306; 94640; 96365; 96367; J0692; J1160; J1940; J1956; J2060; J2920; J3370; J3411; J3475; J3490; J7050; J7512; J7620

== ENCOUNTER 2020-11-01 06:29 | Day surgery (SDC) | payer MEDICARE ==
[2020-10-31 13:06] VITALS: BMI 25.1
[2020-11-01] MEDS ORDERED: Amphotericin B(Fungizone) 0.75 MG in Sterile Water 10 ML IVPB SCH (06:30)
[2020-11-01] MEDS ORDERED: Vancomycin HCl 100 MG, Sodium Chloride 0.9% 10 ML TOP SCH (06:30)
[2020-11-01] MEDS ORDERED: Fentanyl 100 MCG/2 ML VIAL ONE (06:37)
[2020-11-01] MEDS ORDERED: Midazolam HCl 2 mg/2 ml Vial ONE (06:37)
[2020-11-01] MEDS ORDERED: Cyclopentolate 1% Opth Drop 2 ML BOT ONE (07:03)
[2020-11-01] MEDS ORDERED: Phenylephrine 2.5% Ophth Soln 5 ML BOT ONE (07:03)
[2020-11-01] MEDS ORDERED: EPINEPHrine 0.3 MG in Ophthalmic Irrigation Solution 500 ML IRR SCH (08:15)
[2020-11-01] MEDS ORDERED: Lidocaine 4% PF 5 ML AMP ONE (08:29)
[2020-11-01] MEDS ORDERED: PROPOFOL 200 MG/20 ML VIAL ONE (08:29)
[2020-11-01] MEDS ORDERED: PHENYLEPHRINE-NS 100 MCG/ML 10 ML SYRINGE ONE (08:29)
[2020-11-01] MEDS ORDERED: Maxitrol 0.1% Opth Oint 3.5 GM TUBE ONE (08:29)
[2020-11-01] MEDS ORDERED: Bupivacaine PF 0.75% SDV 10 ML ONE (08:29)
[2020-11-07 08:42] LABS: Fungus Stain Final report (.)
[2020-11-29 16:11] LABS: Fungus Culture Final report (.)
== END 2020-11-01 09:55 | disposition home or self-care (01) ==
LOC: SDC 06:29
PROVIDERS: ATTEND Ophthalmology Retina Specialist
PROC: 08T43ZZ Resection of Right Vitreous, Percutaneous Approach (ICD-10-PCS; principal; 2020-11-01)
PROC: 08NE3ZZ Release Right Retina, Percutaneous Approach (ICD-10-PCS; 2020-11-01)
PROC: 3E0C3GC Introduction of Other Therapeutic Substance into Eye, Percutaneous Approach (ICD-10-PCS; 2020-11-01)
DX: H44.001 Unspecified purulent endophthalmitis, right eye (principal); I48.91 Unspecified atrial fibrillation; Z79.52 Long term (current) use of systemic steroids
CPT/HCPCS: 87070; 87102; 87205; 87206; J0171; J0285; J0713; J2250; J2704; J3010; J3370; J3490